=== PATIENT | female | born 1960 | race Caucasian/White ===

== ENCOUNTER 2019-02-14 12:09 | Observation (INO) | payer BC ==
[2019-02-14 15:03] LABS: ABS Basophils 0.1 10^3/ul (0-0.2); ABS Eosinophils 0.3 10^3/ul (0-0.6); ABS Lymphocytes 1.6 10^3/ul (1.0-4.8); ABS Monocytes 0.5 10^3/ul (0-0.8); ABS Neutrophils 3.8 10^3/ul (1.5-7.7); ABS Nucleated RBC 0 10^3/ul; Eosinophil % 4.2 %; Hematocrit 38 % (33-41); Hemoglobin 13.2 g/dL (12.0-16.0); Lymphocyte % 25.4 %; Mean Corpuscular HGB Conc 34 g/dL (31-36); Mean Corpuscular Hemoglobin 31 pg (27-31); Mean Corpuscular Volume 90 fL (80-97); Mean Platelet Volume 7.3 fL (7.4-10.4); Nucleated Red Blood Cells % 0; Platelet Count 300 10^3/uL (150-450); Red Blood Count 4.26 10^6 /uL (3.70-4.87); Red Cell Distribution Width 15 % (10.5-15); White Blood Count 6.2 10^3/uL (3.5-10.8)
--- NOTE | 2019-02-14 15:06 | ED ---
HPI Chest Pain - HPI Summary HPI Summary: This pt is a 58 y/o female presenting to [facility] referred by Dr. Coleman c/o intermittent chest pain for the past 1 month, intensifying in the past couple of weeks. Pt states episodes are happening more frequently, several times a day. Pt states symptoms lasting a little longer than previous. Pt reports she had a right hip injury in November 2018. Pt has been out of work and and had followed up appointment with her PCP, Dr. Coleman, yesterday. 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 She states she had an EKG done yesterday that was abnormal and was advised to come to the ED. Pt was started on Propranolol for high blood pressure yesterday as well, and states it has been helping her blood pressure normalize. She notes she has been anxious since her hip injury and it has been worse in the last couple of weeks due to her chest pain. She describes her chest pain as dull ache underneath her ribs on the left anterior that is nonradiating. Her chest pain is aggravated with anxiety. Denies associated symptoms of SOB, nausea, vomiting, back pain, diaphoresis, edema in LE, calf pain. Her last episode of chest pain was this am. Pt takes ibuprofen 400-600 mg for her hip pain. She states she has an upcoming appt next week by states she is not ready to go back to work because she can barely walk. She also takes Gabapentin, which also helps her hip pain. She does not take any aspirin. Pt is not a smoker. Denies hx of DM or high cholesterol. Both parents with FHx of HTN. Patient medication reviewed this visit. - History of Current Complaint Chief Complaint: EDChestPainROMI Time Seen by Provider: 02/14/19 14:51 Hx Obtained From: Patient Onset/Duration: Started Weeks Ago, Still Present Timing: Intermittent, Lasting Weeks Current Severity: None Pain Intensity: 0 Pain Scale Used: 0-10 Numeric Chest Pain Location: Left Anterior Chest Pain Radiates: No Character: Dull/Aching Aggravating Factor(s): Other: - anxiety Alleviating Factor(s): Nothing Associated Signs and Symptoms: Positive: Chest Pain, Anxiety. Negative: Shortness of Breath, Diaphoresis, Nausea, Back Pain, Calf Pain/Swelling, Vomiting, Edema - Risk Factors Pulmonary Embolism Risk Factors: Negative - Allergy/Home Medications Allergies/Adverse Reactions: Allergies Allergy/AdvReac Type Severity Reaction Status Date / Time epinephrine Allergy Palpitation Verified 02/14/19 12:38 s Home Medications: Home Medications Propranolol TAB* [Inderal TAB*] 20 mg PO BID 02/14/19 [History Confirmed ] PMH/Surg Hx/FS Hx/Imm Hx Previously Healthy: Yes Endocrine/Hematology History: Denies: Hx Diabetes, Hx Thyroid Disease Cardiovascular History: Denies: Hx Hypertension, Hx Pacemaker/ICD Respiratory History: Denies: Hx Asthma, Hx Chronic Obstructive Pulmonary Disease (COPD) GI History: Denies: Hx Ulcer History: Denies: Hx Renal Disease Musculoskeletal History: Reports: Hx Arthritis - OSTEO- KNEES AND HIPS, FEET, Hx Rheumatoid Arthritis Sensory History: Reports: Hx Contacts or Glasses - WILL WEAR GLASSES DAY OF Denies: Hx Hearing Aid Opthamlomology History: Reports: Hx Contacts or Glasses - WILL WEAR GLASSES DAY OF Psychiatric History: Denies: Hx Panic Disorder - Cancer History Cancer Type, Location and Year: Melanoma in situ 1994 - Surgical History Surgery Procedure, Year, and Place: PAROTID TUMOR REMOVED-1997[facility] SINUS SURGERY-1988-. Lt HAND - Ganglion cyst removed january 2014 Hx Anesthesia Reactions: No Infectious Disease History: No Infectious Disease History: Denies: Hx Clostridium Difficile, Hx Hepatitis, Hx Human Immunodeficiency Virus (HIV), Hx of Known/Suspected MRSA, Hx Shingles, Hx Tuberculosis, Traveled Outside the in Last 30 Days - Family History Known Family History: Positive: Cardiac Disease - Mother, Hypertension - both parents Family History: Mother with Parkinson's. Father with myositis. - Social History Occupation: Employed Full-time - current out WC injury Alcohol Use: Occasionally Alcohol Amount: 1-2 DRINKS PER WEEK Substance Use Type: Reports: None Smoking Status (MU): Never Smoked Tobacco Review of Systems Negative: Fever, Skin Diaphoresis Positive: Chest Pain Negative: Shortness Of Breath Negative: Vomiting, Nausea Musculoskeletal: Other - POS: right hip pain Negative: Edema, Other - NEG: back pain, calf pain Positive: Anxious All Other Systems Reviewed And Are Negative: Yes Physical Exam - Summary Physical Exam Summary: Vital Signs Reviewed: Yes A+Ox3, no distress Eyes: Conjunctiva Clear, ROSELYN. EOM intact and full ENT: Hearing grossly normal TM x 2 clear, mmoist, uvula midline, no exudate, no erythema Neck: Positive: Supple Respiratory: Positive: No respiratory distress, No accessory muscle use + CTA throughout no w/r Cardiovascular: RRR nl s1, s2 no m/r CBT <2 sec no bruits mild TTP left anterior chest wall with direct palpation and ROM upper extremities. abd soft + BS nt/nd no guarding, no distension Musculoskeletal Exam: CAREY x 4 without difficulty Strength Intact, ROM Intact Neurological: Positive: Alert, + sensation throughout Psychological: Positive: Normal Response To Family Skin: Positive: no rash, no ecchymosis Triage Information Reviewed: Yes Vital Signs On Initial Exam: Initial Vitals Temp Pulse Resp BP Pulse Ox 99.7 F 76 16 127/87 96 02/14/19 12:32 02/14/19 12:32 02/14/19 12:32 02/14/19 12:32 02/14/19 12:32 Diagnostics - Vital Signs Vital Signs Temp Pulse Resp BP Pulse Ox 02/14/19 14:45 99.1 F 74 18 130/79 97 02/14/19 12:32 99.7 F 76 16 127/87 96 - Laboratory Result Diagrams: 02/14/19 14:56 02/14/19 14:56 Lab Statement: Any lab studies that have been ordered have been reviewed, and results considered in the medical decision making process. - Radiology Chest XR Radiology Interpretation Completed By: Radiologist Summary of Radiographic Findings: IMPRESSION: No active cardiopulmonary disease is noted. Dr. Do has reviewed this report. Re-Evaluation - Re-Evaluation First Eval Re-Evaluation Time: 16:07 Comment: Reviewed negative CXR results with pt. Trop neg. Still concerned regarding EKG in the setting of escalating episodes of chest pain. Ater discussion, pt in agreement to stay for observation Pt was written for aspirin. Chest Pain Course/Dx - Course Course Of Treatment: Patient presents to urgent care at the prompting of her PCP. Patient with history of intermittent chest pain for approximately one month. Last episode of chest pain was this morning. Patient states it's brief lasting usually less than 5 minutes. Patient states she's got a history of anxiety this can worsen she's been out of the Workmen's Comp. right leg injury. Patient states when her anxiety increases sodas or chest pain. Patient states she's not nauseous or short of breath with it. Patient does not take anything specifically for the pain. Patient does not have a history of hypertension, tobacco use, cholesterol. Patient had an EKG done at her PCPs office yesterday that showed deep inversion of her T waves laterally. Patient encouraged to come to ED for further evaluation. Patient does not take aspirin. Vital signs are stable. Patient's exam is non-concerning. Patient does have mild reproducible left anterior chest pain along the T6-T7 rib spaces. Patient states this is similar to the pain. This pain is mildly increased with range of motion against resistance of shortness. Review of EKG from the office as well as today is unchanged however does show deep inverted T waves as well as slightly biphasic T-wave in V3. Patient does not have specifically was factors but has been having intermittent escalating frequency of chest pain. We'll check a troponin. Will check chest x-ray. Patient very anxious states she does not want to stay in the hospital. - Diagnoses Provider Diagnoses: Chest pain, Abnormal EKG - Provider Notifications Discussed Care Of Patient With: Qi Venegas - hospitalist Time Discussed With Above Provider: 16:20 Instructed by Provider To: Admit As Inpatient Discharge - Sign-Out/Discharge Documenting (check all that apply): Patient Departure - Admit to [facility] Patient Received Moderate/Deep Sedation with Procedure: No - Discharge Plan Condition: Stable Disposition: ADMITTED TO [facility] - Billing Disposition and Condition Condition: STABLE Disposition: Admitted to [facility] - Attestation Statements Document Initiated by Johnnieibe: Yes Documenting Scribe: Laury Barrera Provider For Whom Scribe is Documenting (Include Credential): Kailyn Do MD Scribe Attestation: Laury Villatoro, scribed for Kailyn Do MD on 02/17/19 at 0725. Scribe Documentation Reviewed: Yes Provider Attestation: The documentation as recorded by the Laury forrester accurately reflects the service I personally performed and the decisions made by me, Kailyn Do MD Status of Scribe Document: Viewed
[2019-02-14 15:20] LABS: Albumin 4.6 g/dL (3.2-5.2); Albumin/Globulin Ratio 2.2 (1-3); BUN/Creatinine Ratio 17.6 (8-20); Calcium 9.1 mg/dL (8.6-10.3); EGFR African American 76.6 (>60); EGFR Non-African American 63.3 (>60); Globulin 2.1 g/dL (2-4); Potassium 4.4 mmol/L (3.5-5.0); Total Bilirubin 0.4 mg/dL (0.2-1.0); Total Protein 6.7 g/dL (6.4-8.9)
[2019-02-14] MEDS ORDERED: Aspirin 81 mg CHEW TAB* 81 MG TAB.CHEW PO ONE (16:15)
[2019-02-14] MEDS ORDERED: Al Hydrox/Mg Hydrox/Simet LIQ* 30 ML UDC PO PRN (18:35)
[2019-02-14] MEDS ORDERED: Acetaminophen TAB* 325 MG PO PRN (18:35)
[2019-02-14 19:10] LABS: TSH (Thyroid Stimulating Horm) 1.08 mcIU/mL (0.34-5.60)
--- NOTE | 2019-02-14 20:31 | HP ---
CC: Dr. Susan Toussaint * HISTORY AND PHYSICAL: DATE OF ADMISSION: 02/14/19 PROVIDER: Joie Robles NP PRIMARY CARE PROVIDER: Susan Toussaint MD ATTENDING PHYSICIAN WHILE IN THE HOSPITAL: Qi Venegas MD * (dictated by Joie Robles NP) CHIEF COMPLAINT: Chest pain. HISTORY OF PRESENT ILLNESS: Ms. Nye is a 58-year-old female with a past medical history significant for avascular necrosis of the right hip, recently diagnosed anxiety, and history of melanoma who presented to the emergency room with complaints of left-sided chest pain. The patient reports she went to her primary care provider's office yesterday, she had an EKG and today was instructed to come to the emergency room for further evaluation as she did have EKG changes noted on yesterday's EKG as well as her continued symptoms of left- sided chest pain. The patient reports that she initially fell in November when she slipped on the ice landing on her right hip. Since then she has had right hip pain and had increasing anxiety about the right hip. She reports that she is supposed to follow up with Orthopedic next week and her hip pain is not improving. She recently had an MRI and was diagnosed with avascular necrosis of the right hip. She states that her anxiety has been out of control since the diagnosis of avascular necrosis of the hip and the possibility of returning to work with continued significant pain in the right hip. The patient states approximately 1 month ago, she started developing chest pain on and off. She reports it is left sided. She reports that chest pain becomes worse with anxiety and palpation to the left chest also makes the pain worse. She states the pain is sharp and radiates inwards and feels like musculoskeletal pain. She denies any diaphoresis or increased chest pain with exertional activities. She denies any shortness of breath associated with the chest pain. She denies chest pain waking her at night, but due to these continued symptoms of left- sided chest pain and EKG changes, she was instructed to report to the emergency room for further evaluation. In the emergency room, she had routine lab work drawn, which was within normal limits. Troponin was 0.00. She did have an EKG that showed inverted T waves in V4, 5, and 6. She had a chest x-ray that showed no acute disease. The patient denies any fevers, chills. Denies any unintended weight loss. She complains of chest pain that is worse with palpation and increases with increased levels of anxiety. Denies any cough, hemoptysis, or shortness of breath. Denies any nausea, vomiting, diarrhea, abdominal pain, hematuria, or dysuria. Denies any focal weakness, sensory loss , visual complaints, dysphagia. She does complain of right hip pain. She has a healing reddish rash noted to her right forearm. She also reports her anxiety has been out of control. The patient is tearful and crying during interview. Due to her symptoms of chest pain, we were asked to see and evaluate her for admission. PAST MEDICAL HISTORY: 1. Anxiety. 2. History of melanoma. 3. Right hip avascular necrosis. PAST SURGICAL HISTORY: 1. Parotid gland removed. 2. Sinus surgery. 3. Ganglion cyst removal in 2013. HOME MEDICATIONS: 1. CBD oil daily. 2. Ibuprofen 400 to 600 mg b.i.d. to t.i.d. 3. Gabapentin 300 mg 5 times daily. 4. Propranolol 20 mg p.o. b.i.d., which she restarted yesterday. 5. Melatonin 3 mg p.o. at night. ALLERGIES: Allergy to EPINEPHRINE. FAMILY HISTORY: Mother and father both with hypertension. No reported history of diabetes. Father with a history of lung cancer. Mother with a history of Parkinson's disease and in her 80s. SOCIAL HISTORY: Denies any tobacco, alcohol, illicit drug use. She works as a nurse. She is , but currently has domestic partner whom she has been with for 18 years. Code status, she is a full code. Surrogate decision maker in the event she is unable to make her own decisions is her partner, Adriano Suero. REVIEW OF SYSTEMS: A review of 14 systems was completed. All those pertinent positives are mentioned in the HPI. All others are negative. PHYSICAL EXAMINATION GENERAL: At this time, Ms. Nye is a 58-year-old female, she appears anxious and tearful, sitting on the stretcher in the emergency room. She does not appear to be in any acute distress. VITAL SIGNS: Blood pressure 130/79, temperature was 99.1, heart rate was 74, respirations 18, O2 sat 97% on room air. HEENT: Head is atraumatic, normocephalic. Eyes: EOMs are intact. Sclerae anicteric and not pale. Oral mucosa appeared to be moist. NECK: Supple. LUNGS: Clear to auscultation bilaterally. No wheezes, rales, or rhonchi. CARDIAC: S1, S2. Regular rate and rhythm. No murmurs, rubs, or gallops. ABDOMEN: Soft and nontender. Bowel sounds are present x4. EXTREMITIES: She is able to move all 4 extremities. Radial pulses +2. NEUROLOGIC: She is awake, alert, oriented x3. She does appear anxious sitting on the stretcher in the emergency room and tearful. Handgrips are equal. Tongue is midline. Speech is clear. There are no gross focal deficits. SKIN: Intact. DIAGNOSTIC STUDIES/LAB DATA: WBCs were 6.2, RBCs 4.26, hemoglobin 13.2, hematocrit was 38, platelet count is 300. Sodium 141, potassium 4.4, chloride was 105, carbon dioxide is 30, anion gap of 6, BUN was 16, creatinine 0.91, glucose was 89. Calcium was 9.1. Magnesium 2.0. ASTs were 22, ALTs were 15, alkaline phosphatase was 50. TSH is currently pending. Troponin was 0.00. Chest x-ray showed no acute cardiopulmonary disease. EKG is sinus rhythm at a rate of 75. She does have T wave inversions in V4, 5, and 6. ASSESSMENT AND PLAN: Ms. Nye is a 58-year-old female who presented to the emergency room today with complaints of chest pain, worse with increased anxiety and palpation. Due to the chest pain and EKG changes, she will be admitted under observation for: 1. Chest pain. She will be admitted to rule out acute coronary syndrome. She does have EKG changes in V4, 5, and 6 with T wave inversions. We will continue to trend her troponins. I will get a repeat troponin in 3 hours. She will have a repeat EKG in the a.m. and chemical nuclear stress test as she does have avascular necrosis of the right hip and ambulates with crutches at this time. She was given aspirin in the emergency room. I will continue her on a baby aspirin 81 mg p.o. daily. I will get a lipid profile in the morning. We will check a TSH. 2. Anxiety. Continue with symptomatic and supportive care. 3. Avascular necrosis of the right hip. We will continue her gabapentin as previously prescribed and ibuprofen as needed for pain. 4. Hypertension. She was initially started on propranolol yesterday for hypertension. We will continue propranolol 20 mg p.o. b.i.d. We will hold this prior to her nuclear stress test in the a.m. 5. Diet. She can have a regular diet. 6. Code status. She is a full code. 7. DVT prophylaxis. I will encourage ambulation. She does score #1 on the risk assessment, giving her a low risk. TIME SPENT: Time spent on this admission was 60 minutes, greater than half the time was spent [id number] with the patient obtaining my history and physical, the other half of the time was spent going over my plan of care and implementing my plan of care. I have discussed this with my attending, Dr. Qi Venegas; she is in agreement with my plan. JOIE ROBLES, ENRIQUE [id number]/CPS #: [id number] MANASA
[2019-02-14] MEDS: Gabapentin CAP(*) 300 MG PO SCH (21:10)
[2019-02-14] MEDS: Propranolol TAB* 20 MG PO SCH (21:10)
[2019-02-14] MEDS: Ibuprofen TAB* 400 MG PO PRN (23:55)
[2019-02-15] MEDS ORDERED: Melatonin 3 MG TAB PO PRN (00:02)
[2019-02-15] MEDS: Ibuprofen TAB* 400 MG PO PRN ×2 (07:32→11:27)
[2019-02-15] MEDS: Gabapentin CAP(*) 300 MG PO SCH ×2 (07:34→12:46)
[2019-02-15] MEDS ORDERED: Aminophylline IV* 25 MG/ML 10 ML VIAL ONE (08:09)
[2019-02-15] MEDS ORDERED: Regadenoson* 0.4 MG/5 ML SYRINGE ONE (08:09)
[2019-02-15] MEDS ORDERED: Aspirin 81 mg CHEW TAB* 81 MG TAB.CHEW PO SCH (09:00)
[2019-02-15] MEDS: Propranolol TAB* 20 MG PO SCH (11:27)
--- NOTE | 2019-02-15 15:04 | ECHO ---
Patient: BASSAM ROWE [facility] Rec#: [id number] : 1960 Date: 02/15/2019 Age: 58y Height: 173 cm / 68.1 in Weight: 65 kg / 143.3 lbs Sex: F BSA: 1.78 Room#: [facility] Admit Date#: 02/15/2019 Type: Inpatient Referring: Chelita Sumner DO Reading: Silverio Red MD [employer] Field: Lynn Thacker RDCS,RDMS CC: Susan Toussaint MD Transthoracic Echocardiogram Indication: ABN EKG, CP BP: 126/74 HR: 64 Rhythm: NSR Findings History: Melanoma, avascular necrosis of right hip. Technical Comments: The study quality is good. Left Ventricle: The left ventricular chamber size is normal. Mild concentric left ventricular hypertrophy is observed. Global left ventricular wall motion and contractility are within normal limits. There is normal left ventricular systolic function. The estimated ejection fraction is 60-65%. There is an E to A reversal in the mitral valve flow pattern suggestive of diastolic dysfunction. Left Atrium: The left atrium is mildly dilated. Right Ventricle: The right ventricular chamber size and systolic function are within normal limits. Right Atrium: The right atrium is mildly dilated. A prominent chiari network is noted in the right atrium. There is evidence of an atrial septal aneurysm. without obvious shunting on color flow interrogation. Aortic Valve: The aortic valve is trileaflet. Systolic excursion of the aortic valve is normal. There is no evidence of aortic regurgitation. There is no evidence of aortic stenosis. Mitral Valve: The mitral valve leaflets appear normal. There is a trace of mitral regurgitation. Tricuspid Valve: The tricuspid valve leaflets are normal. There is a physiologic tricuspid regurgitation. Unable to estimate the right ventricular systolic pressure. Pulmonic Valve: There is no evidence of pulmonic valve thickening. There is a trace pulmonic regurgitation. There is no pulmonic stenosis. Pericardium: There is no significant pericardial effusion. Aorta: The aortic root appears normal. There is no dilatation of the aortic arch. Pulmonary Artery: The main pulmonary artery is not well visualized. Venous: The inferior vena cava appears normal in size. There is a greater than 50% respiratory change in the inferior vena cava dimension. Conclusions There is normal left ventricular systolic function. The estimated ejection fraction is 60-65%. Global left ventricular wall motion and contractility are within normal limits. The left ventricular chamber size is normal. Mild concentric left ventricular hypertrophy is observed. There is an E to A reversal in the mitral valve flow pattern suggestive of diastolic dysfunction. The left atrium is mildly dilated. The right atrium is mildly dilated. Functionally benign heart valves. There is no prior echocardiogram available to compare with at this time. Measurements Name Value Normal Range RVIDd (AP) 2D 2.9 cm (0.9 - 2.6) RVDdMajor (2D) 2.2 cm (2.2 - 4.4) RAd ISD 4CH 5.4 cm (3.4 - 4.9) RA (A4C)W 3.8 cm (2.9 - 4.6) IVSd (2D) 1.2 cm (0.6 - 1) LVPWd (2D) 1.3 cm (0.6 - 1) LVIDd (2D) 5.3 cm (3.6 - 5.4) LVIDs (2D) 3.4 cm - LV FS (2D) 36 % (25 - 45) Aortic Annulus 2 cm (1.4 - 2.6) Ao root diameter (2D) 3.2 cm (2.1 - 3.5) Ascending Ao 2.9 cm (2.1 - 3.4) Aortic arch 2.5 cm (1.8 - 3.4) LA dimension (AP) 2D 3.6 cm (2.3 - 3.8) LAd ISD 4CH 6 cm (2.9 - 5.3) LA ISD 4CH W 4 cm (2.5 - 4.5) Name Value Normal Range LA ESV BP (A/L) index 28 ml/m2 - Name Value Normal Range MV E-wave Vmax 0.6 m/sec - MV deceleration time 177 msec - MV A-wave Vmax 0.8 m/sec - MV E:A ratio 0.8 ratio - LV septal e' Vmax 0.06 m/sec - LV lateral e' Vmax 0.09 m/sec - LV E:e' septal ratio 10 ratio - LV E:e' lateral ratio 7 ratio - Name Value Normal Range AV Vmax 1.3 m/sec - AV VTI 27 cm - AV peak gradient 7 mmHg - AV mean gradient 4 mmHg - LVOT Vmax 1 m/sec - LVOT VTI 20 cm - LVOT peak gradient 4 mmHg - LVOT mean gradient 2 mmHg - TANI Vmax 1 m/sec - Name Value Normal Range RAP 8 mmHg - IVC diameter 1.9 cm - Name Value Normal Range PV Vmax 0.6 m/sec - PV peak gradient 1.4 mmHg -
[2019-02-15 16:12] VITALS: BP 132/71
--- NOTE | 2019-02-15 20:30 | DS ---
CC: Dr. Blaze Burgess; Dr. Susan Toussaint * DISCHARGE SUMMARY: DATE OF ADMISSION: 02/14/19 DATE OF DISCHARGE: 02/15/19 PRIMARY CARE PROVIDER: Dr. Toussaint. PRINCIPAL DIAGNOSIS: Atypical chest pain. SECONDARY DIAGNOSES: 1. Avascular necrosis of the right hip. 2. Anxiety. 3. Hypertension. DISCHARGE MEDICATION: 1. Ibuprofen 400 to 600 mg p.o. q.8 hours p.r.n. pain. 2. Propranolol 20 mg p.o. b.i.d. 3. Gabapentin 300 mg p.o. 5 times daily. 4. Lipitor 20 mg p.o. q.h.s. (new). 5. Aspirin 81 mg p.o. daily (new). HOSPITAL COURSE: Ms. Nye is a 58-year-old female who presented to the emergency room from her primary care provider's office due to the new findings of T- wave inversions in the anterolateral leads. The patient has been reporting off-and- on chest pain for approximately 1 month. She notes that the pain becomes worse with anxiety and with palpation of the chest. She has been using crutches to get around given the avascular necrosis of the right hip. The patient's story was not felt to be very concerning for cardiac ischemia; however, her EKG was noted to be markedly abnormal. The patient was admitted and ruled out for an acute coronary syndrome with serial troponins. Her troponins were 0 x3. Her EKG continued to reveal T-wave inversions in the anterolateral leads. She underwent a chemical nuclear stress test on 02/15/19, which revealed reversible hypoperfusion of the apex and distal anterior wall concerning for ischemia. I did speak with the on- call youth career specialist, who was present during her stress test. It was recommended that the patient undergo transthoracic echocardiogram. It was felt that perhaps the EKG changes and the abnormal stress test results could be secondary to hypertrophic cardiomyopathy. Additionally, it was recommended to start aspirin and Lipitor and have the patient followup with Dr. Burgess of Cardiology. The patient at this point feels comfortable with this plan. I have scheduled an appointment for 02/27/[address] Burgess and she has been placed on a cancellation list in case she has an appointment sooner. The patient understands that she is to return to the emergency room if she has any changes in her chest discomfort whatsoever or if there is any concerning symptoms that she experiences she is to immediately come back to the emergency room. The patient's was present during this conversation and is in agreement with the plan as well. The patient's story of chest pain does not fit with the findings and therefore no further evaluation within the hospital is going to be performed. PHYSICAL EXAMINATION: On the day of discharge, the patient is awake, alert, and oriented; sitting up in bed, in no acute distress. She does become tearful at one point talking about her hip. Her cardiac exam reveals a normal S1, S2 with regular rate and rhythm. Her lungs are clear. Her abdomen is soft, nontender and nondistended. FOLLOWUP CONCERNS: The patient is being discharged home today 02/15/19. ACTIVITY LEVEL: As tolerated. DIET: Regular. CONDITION ON DISCHARGE: Stable. TIME SPENT: Twenty-five minutes was spent discharging this patient. [id number]/CPS #: [id number] MANASA
== END 2019-02-15 17:06 | disposition home or self-care (01) ==
LOC: ED 12:09 → MEDTELE 18:35
PROVIDERS: ADMIT Internal Medicine; ATTEND Hospitalist
DX: R07.89 Other chest pain (principal); M87.851 Other osteonecrosis, right femur; F41.9 Anxiety disorder, unspecified; I10 Essential (primary) hypertension; Z79.82 Long term (current) use of aspirin; Z85.820 Personal history of malignant melanoma of skin; R94.31 Abnormal electrocardiogram [ECG] [EKG]
CPT/HCPCS: 36415; 71046; 78452; 80053; 80061; 82550; 83735; 84443; 84484; 85025; 93005; 93017; 93306; 99284; A9270-GY; A9502; G0378; J0280; J2785

== ENCOUNTER 2020-01-03 10:20 | Inpatient (IN) | payer OTHER ==
--- NOTE | 2020-01-02 13:28 | HP ---
HISTORY AND PHYSICAL: DATE OF SURGERY: 01/03/20 DATE OF OFFICE VISIT: 12/28/19 SURGEON: Emelia Tao MD * (DICTATED BY BELLO ROCHA) PROCEDURE: Right total hip arthroplasty. CHIEF COMPLAINT: Right hip pain. HISTORY OF PRESENT ILLNESS: Ms. 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 She has failed conservative treatment and elected to proceed with a right total hip arthroplasty. PAST MEDICAL HISTORY: Anxiety, hypertension, high cholesterol, melanoma. PAST SURGICAL HISTORY: Sinus surgery and parotid gland tumor removal. CURRENT MEDICATIONS: 1. Ibuprofen as needed. 2. Propranolol 20 mg twice a day. 3. Gabapentin 300 mg 1 tab 5 times a day. 4. Melatonin at night. 5. CBD as needed. 6. Vitamin E. ALLERGIES: EPINEPHRINE. FAMILY HISTORY: Inclusive body myositis, lung cancer, coronary artery disease, Parkinson's disease, and TIA. SOCIAL HISTORY: She is a 59-year-old female. She lives with her partner. She does not smoke or use drugs or alcohol. REVIEW OF SYSTEMS: A complete 14-point review of systems was reviewed with the patient, all negative and noncontributory. She denies history of DVT, PE, hepatitis, HIV, or anesthesia problems. PHYSICAL EXAMINATION GENERAL: She is well developed, well nourished, in no acute distress. VITAL SIGNS: She stands 67.5 inches tall, weighs 125 pounds. Blood pressure was 180/100, heart rate 72. HEENT: Normocephalic and atraumatic. NECK: Supple. No palpable lymph nodes. PULMONARY: The lungs are clear to auscultation bilaterally. CARDIO: Regular rate and rhythm. Strong S1 and S2. ABDOMEN: Soft, nontender, and nondistended. NEUROLOGICAL: She is alert and oriented x3. MUSCULOSKELETAL: Right lower extremity: The skin is intact. There are no open wounds or abrasions. She walks in an antalgic-type gait favoring her right hip. She has decreased internal and external rotation of the right hip. Has a 2+ dorsalis pedis pulse. She is able to dorsiflex and plantar flex, and has intact sensation. ASSESSMENT AND PLAN: Ms. Nye is a 59-year-old female with avascular necrosis of the right hip. She has failed conservative treatment and elected to proceed with a right total hip arthroplasty. The surgery is scheduled for 01/[address] Tao discussed the risks and benefits of the surgery at today's visit and all of her questions were answered. She will follow up with Dr. Tao 2 weeks after the surgery. BELLO ROCHA [id number]/[facility] #: [id number] MANASA
[~2020-01-03 10:20] MED LIST: Acetaminophen TAB* 325 MG PO ONE; Buffered Lidocaine 1% SYRIN* 1 ML/SYRINGE INTRADERM ONE; Lactated Ringers 1000 ML Bag* 1,000 ML IV SCH; Propofol* 500 MG/50 ML BTL ONE; Tranexamic Acid 1,000 MG in NS 0.9% 50 ML* (outpatient use) IV SCH; celeCOXIB CAP* 200 MG PO ONE; fentaNYL* 50 MCG/ML 2 ML VIAL (100 MCG VIAL) ONE
--- OUTSIDE RECORDS SUMMARY | 2020-01-03 10:24 | XMS REPORT | Continuity of Care Document ---
:1960 External Reference #:[id number] Author Name Emelia Tao M.D. (transmitted by agent of provider Vaishali Boyd) Address [address] [place] [address] [place] [address] Care Team Providers Name Role Phone Susan Toussaint MD - Internal Care Team Information Acquisition Marketing Manager [phone] Medicine Problems Active Problems Provider Date Localized, primary osteoarthritis of the pelvic Emelia Tao M.D. Onset: region and thigh Trochanteric bursitis Emelia Tao M.D. Onset: 03/23/2019 Idiopathic aseptic necrosis of right femur Emelia Tao M.D. Onset: 2018 Social History Type Date Description Comments Sex Unknown Smokeless Tobacco Never Used Smokeless Tobacco ETOH Use Denies alcohol use Tobacco Use Start: Unknown Patient has never smoked Recreational Drug Use Denies Drug Use Smoking Status Reviewed: 11/14/19 Patient has never smoked Exercise Type/Frequency Exercises rarely Allergies, Adverse Reactions, Alerts Active Allergies Reaction Severity Comments Date Epinephrine 03/17/2018 Inactive Allergies NKDA 01/10/2014 Medications Active Medications SIG Qnty Indications Ordering Provider Date Ibuprofen 2-3 tabs q8h prn Unknown 200mg Tablets Propranolol HCL 1 by mouth twice Unknown 20mg a day Tablets Gabapentin 1 tab PO 5 times Unknown 300mg Capsules a day Aspir-Low 1 by mouth every Unknown 81mg Tablets DR day Atorvastatin Calcium 1 by mouth every Unknown 20mg day (not started Tablets yet) Mahesh-E 1 tab once per Unknown 400mg Tablets day Melatonin 1 by mouth @ at Unknown 3mg Capsules bedtime prn CBD Oil prn Unknown Medications Administered in Office Medication SIG Qnty Indications Ordering Provider Date Depomedrol 40MG Emelia Tao M.D. 08/08/2019 Injection Depomedrol 40MG Emelia Tao M.D. 04/20/2019 Injection Depomedrol 40MG Emelia Tao M.D. 03/23/2019 Injection Immunizations Description No Information Available Vital Signs Date Vital Result Comment 11/14/2019 11:41am Height 67.5 inches 5'7.50" Weight 125.00 lb Heart Rate 72 /min BP Systolic Sitting 180 mmHg BP Diastolic Sitting 100 mmHg Respiratory Rate 14 /min Pain Level 6 BMI (Body Mass Index) 19.3 kg/m2 08/08/2019 12:03pm Height 67.5 inches 5'7.50" Heart Rate 88 /min BP Systolic 132 mmHg BP Diastolic 84 mmHg Respiratory Rate 16 /min Body Temperature 98.3 F Pain Level 6 Results Test Acquired Date Facility Test Result H/L Range Note CBC Auto 11/14/2019 [facility] White Blood 5.9 10^3/uL Normal 3.5-10.[address] [place] [address] [phone] Red Blood Count 3.77 10^6/uL Normal 3.70-4.87 Hemoglobin 11.4 g/dL Low 12.0-16.0 Hematocrit 34 % Low 35-47 Mean Corpuscular Volume 91 fL Normal 80-97 Mean Corpuscular Hemoglobin 30 pg Normal 27-31 Mean Corpuscular HGB Conc 33 g/dL Normal 31-36 Red Cell Distribution Width 14 % Normal 10-15 Platelet Count 279 10^3/uL Normal 150-450 Mean Platelet Volume 7.7 fL Normal 7.4-10.4 Abs Neutrophils 4.0 10^3/uL Normal 1.5-7.7 Abs Lymphocytes 1.2 10^3/uL Normal 1.0-4.8 Abs Monocytes 0.5 10^3/uL Normal 0-0.8 Abs Eosinophils 0.1 10^3/uL Normal 0-0.6 Abs Basophils 0.1 10^3/uL Normal 0-0.2 Abs Nucleated RBC 0.0 10^3/uL Granulocyte % 67.7 % Lymphocyte % 20.7 % Monocyte % 8.4 % Eosinophil % 2.0 % Basophil % 1.2 % Nucleated Red Blood Cells % 0.0 Urinalysis Profile 11/14/2019 [facility] Urine Color Yellow [address] [place] [address] [phone] Urine Appearance Cloudy Urine Specific [place] 1.010 Normal 1.010-1.030 Urine pH 5.0 Normal 5-9 Urine Urobilinogen Negative Negative Urine Ketones Negative Negative Urine Protein Negative Negative Urine Leukocytes Negative Negative Urine Blood Negative Negative Urine Nitrite Negative Negative Urine Bilirubin Negative Negative Urine Glucose Negative Negative Comp Metabolic 11/14/2019 [facility] Sodium 142 mmol/L Normal 135-[address] [place] [address] [phone] Potassium 4.4 mmol/L Normal 3.5-5.0 Chloride 107 mmol/L Normal 101-111 Co2 Carbon Dioxide 31 mmol/L Normal 22-32 Anion Gap 4 mmol/L Normal 2-11 Glucose 86 mg/dL Normal 70-100 Blood Urea Nitrogen 12 mg/dL Normal 6-24 Creatinine 0.75 mg/dL Normal 0.51-0.95 BUN/Creatinine Ratio 16.0 Normal 8-20 Calcium 8.8 mg/dL Normal 8.6-10.3 Total Protein 6.0 g/dL Low 6.4-8.9 Albumin 4.0 g/dL Normal 3.2-5.2 Globulin 2.0 g/dL Normal 2-4 Albumin/Globulin Ratio 2.0 Normal 1-3 Total Bilirubin 0.40 mg/dL Normal 0.2-1.0 Alkaline Phosphatase 44 U/L Normal 34-104 Alt 16 U/L Normal 7-52 Ast 20 U/L Normal 13-39 Egfr Non- 78.8 >60 Egfr 95.4 >60 1 Inr/Protime 11/14/2019 [facility] Inr 0.98 Normal 0.82-1.[address] [place] [address] [phone] Laboratory test 11/14/2019 [facility] Partial 39.9 High 26.0- 38.[address] [place] [address] Time PTT [phone] Urine Culture And 11/14/2019 [facility] Urine SEE RESULT [address] [place] [place] [address] [phone] Xray 08/08/2019 [facility] Inj/Aspir <pending> Major JT Or Shelliea W/ US 1 Because ethnic data is not always readily available, this report includes an eGFR for both -Americans and non- Americans. The National Kidney Disease Education Program (NKDEP) does not endorse the use of the MDRD equation for patients that are not between the ages of 18 and 70, are , have extremes of body size, muscle mass, or nutritional status, or are non- or non-. According to the National Kidney Foundation, irrespective of diagnosis, the stage of the disease is based on the level of kidney function: Stage Description GFR(mL/min/1.73 m(2)) 1 Kidney damage with normal or decreased GFR 90 2 Kidney damage with mild decrease in GFR 60-89 3 Moderate decrease in GFR 30-59 4 Severe decrease in GFR 15-29 5 Kidney failure <15 (or dialysis) 2 Standard intensity warfarin therapeutic range: 2.0-3.0 High intensity warfarin therapeutic range: 2.5-3.5 3 SEE RESULT BELOW Name: DANIELLE NYE : [address]: Emelia Tao MD Acct: [id number] Unit: [id number] AGE: 59 Location: [facility] Re11/14/19 SEX: F Status: REG REF SPEC: [id number] ERIN: 11/14/19-5143 [facility] DR: Emelia Tao MD REQ: [id number] RECD: 11/14/19 STATUS: COMP _ SOURCE: URINE SPDESC: ORDERED: Urine Culture QUERIES: Urine Source: Clean Catch Procedure Result Reported Site Urine Culture Final 11/15/19- 1450 ML No Growth (<1,000 CFU/mL) * ML - Main Lab . END OF REPORT DEPARTMENT OF PATHOLOGY, [address] [place] [address] Christopher Cartwright M.D. Director [facility] # [id number] Procedures Date Code Description Status 08/08/2019 44541 Inj/Aspir Major JT Or Bursa W/ US Completed Medical Devices Description No Information Available Encounters Type Date Location Provider Dx Diagnosis Office Visit 08/08/2019 [facility] Emelia Tao, 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 M76.01 Gluteal tendinitis, right hip M25.551 Pain in right hip W00.9xxD Unspecified fall due to ice and snow, subsequent encounter M70.61 Trochanteric bursitis, right hip M16.11 Unilateral primary osteoarthritis, right hip 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 Assessments Date Code Description Provider 11/14/2019 M25.551 Pain in right hip Emelia Tao M.D. 11/14/2019 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 Emelia Tao M.D. 08/30/2019 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 Emelia Tao M.D. 08/30/2019 M76.01 Gluteal tendinitis, right hip Emelia Tao M.D. 08/30/2019 M25.551 Pain in right hip Emelia Tao M.D. 08/30/2019 W00.9xxD Unspecified fall due to ice and snow, Emelia Tao M.D. subsequent encounter 08/30/2019 M70.61 Trochanteric bursitis, right hip Emelia Tao M.D. 08/08/2019 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 Emelia Tao M.D. 08/08/2019 M76.01 Gluteal tendinitis, right hip Emelia Tao M.D. 08/08/2019 M25.551 Pain in right hip Emelia Tao M.D. 08/08/2019 W00.9xxD Unspecified fall due to ice and snowEmelia M.D. subsequent encounter 08/08/2019 M70.61 Trochanteric bursitis, right hip Emelia Tao M.D. 08/08/2019 M16.11 Unilateral primary osteoarthritis, right hip Emelia Tao M.D. 08/08/2019 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 Emelia Tao M.D. Plan of Treatment Future Appointment(s):12/12/2019 11:15 am - Emelia Tao M.D. at [facility]11/14/2019 - Emelia Tao M.D.M25.551 Pain in right hipFollow up:Follow up: 2 weeks after uktbrblE50.051 Idiopathic aseptic necrosis of right femur Functional Status Description No Information Available Mental Status Description No Information Available Referrals Description No Information Available
--- OUTSIDE RECORDS SUMMARY | 2020-01-03 10:24 | XMS REPORT | Continuity of Care Document ---
:1960 External Reference #:[id number] Author Name Emelia Tao M.D. (transmitted by agent of provider Merle Mathur) Address [address] [place] [address] [place] [address] Care Team Providers Name Role Phone Susan Toussaint MD - Internal Care Team Information Medical Technologist Chemistry [phone] Medicine Problems Active Problems Provider Date Localized, [...] Use Denies Drug Use Smoking Status Reviewed: 12/28/19 Patient has never smoked Exercise Type/Frequency Exercises [...] Available Vital Signs Date Vital Result Comment 12/28/2019 11:35am Height 67.5 inches 5'7.50" Weight 128.00 lb Heart Rate 70 /min BP Systolic 132 mmHg BP Diastolic 70 mmHg Respiratory Rate 14 /min Body Temperature 98.1 F Pain Level 6 BMI (Body Mass Index) 19.7 kg/m2 12/12/2019 11:43am Height 67.5 inches 5'7.50" Weight 128.00 lb Heart Rate 70 /min BP Systolic 148 mmHg BP Diastolic 94 mmHg Body Temperature 99.2 F Pain Level 7 BMI (Body Mass Index) 19.7 kg/m2 Results Test Acquired Date Facility Test Result H/L Range Note CBC Auto 11/14/2019 [facility] White Blood 5.9 10^3/uL Normal 3.5-10.[address] [place] [address] [phone] Red Blood Count 3.77 10^6/uL Normal 3.70-4.87 [...] Blood Cells % 0.0 Urinalysis Profile 11/14/2019 [facility] Urine Color Yellow [address] [place] [address] [phone] Urine Appearance Cloudy Urine Specific [place] 1.010 Normal 1.010-1.030 Urine pH 5.0 Normal 5-9 Urine Urobilinogen Negative Negative Urine Ketones Negative Negative Urine Protein Negative Negative Urine Leukocytes Negative Negative Urine Blood Negative Negative Urine Nitrite Negative Negative Urine Bilirubin Negative Negative Urine Glucose Negative Negative Comp Metabolic 11/14/2019 [facility] Sodium 142 mmol/L Normal 135-[address] [place] [address] [phone] Potassium 4.4 mmol/L Normal 3.5-5.0 Chloride 107 [...] >60 Egfr 95.4 >60 1 Inr/Protime 11/14/2019 [facility] Inr 0.98 Normal 0.82-1.[address] [place] [address] [phone] Laboratory test 11/14/2019 [facility] Partial 39.9 High 26.0- 38.[address] [place] [address] Time PTT [phone] Urine Culture And 11/14/2019 [facility] Urine SEE RESULT [address] [place] [address] [phone] Xray 08/08/2019 [facility] Inj/Aspir <pending> Major JT Or [...] [address]: Emelia Tao MD Acct: [id number] Unit: [id number] AGE: 59 Location: [facility] Re11/14/19 SEX: F Status: REG REF SPEC: [id number] ERIN: 11/14/191434 [facility] DR: Emelia Tao MD REQ: [id number] RECD: 11/14/19 STATUS: COMP _ SOURCE: URINE SPDESC: ORDERED: Urine Culture QUERIES: Urine Source: Clean Catch Procedure Result Reported Site Urine Culture Final 11/15/19- 1450 ML No Growth (<1,000 CFU/mL) * ML - Main Lab . END OF REPORT DEPARTMENT OF PATHOLOGY, [address] [place] [address] Christopher Cartwright M.D. Director [facility] # [id number] Procedures Date Code Description Status 11/14/2019 40190 EKG, Interpretation Only Completed 08/08/2019 35289 Inj/Aspir Major JT Or Bursa W/ US Completed Medical Devices Description No Information Available Encounters Type Date Location Provider Dx Diagnosis Office Visit 12/12/2019 [facility] Emelia Tao, M25.551 Pain in right hip 11:15a at [facility] 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 M76.01 Gluteal tendinitis, right hip M70.61 Trochanteric bursitis, right hip M16.11 Unilateral primary osteoarthritis, right hip Office Visit 08/08/2019 11:30a [facility] Emelia Tao, 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 [facility] aseptic necrosis of right femur M76.01 Gluteal tendinitis, right hip M25.551 Pain in right hip W00.9xxD Unspecified fall due to ice and snow, subsequent encounter M70.61 Trochanteric bursitis, right hip M16.11 Unilateral primary osteoarthritis, right hip 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 Assessments Date Code Description Provider 12/12/2019 M25.551 Pain in right hip Emelia Tao M.D. 12/12/2019 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 aseptic necrosis of right Emelia Tao M.D. femur 12/12/2019 M76.01 Gluteal tendinitis, right hip Emelia Tao M.D. 12/12/2019 M70.61 Trochanteric bursitis, right hip Emelia Tao M.D. 12/12/2019 M16.11 Unilateral primary osteoarthritis, right Emelia Tao M.D. hip 11/14/2019 Z13.6 Encounter for screening for Blaze Burgess DO [facility] cardiovascular disorders 11/14/2019 M25.551 Pain in right hip Emelia Tao M.D. 11/14/2019 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 aseptic necrosis of right Emelia Tao M.D. femur 08/30/2019 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 aseptic necrosis of right Emelia Tao M.D. femur 08/30/2019 M76.01 Gluteal tendinitis, right hip Emelia Tao M.D. 08/30/2019 M25.551 Pain in right hip Emelia Tao M.D. 08/30/2019 W00.9xxD Unspecified fall due to ice and snow, Emelia Tao M.D. subsequent encounter 08/30/2019 M70.61 Trochanteric bursitis, right hip Emelia Tao M.D. 08/08/2019 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 aseptic necrosis of right Emelia Tao M.D. femur 08/08/2019 M76.01 Gluteal tendinitis, right hip Emelia Tao M.D. 08/08/2019 M25.551 Pain in right hip Emelia Tao M.D. 08/08/2019 W00.9xxD Unspecified fall due to ice and snow, Emelia Tao M.D. subsequent encounter 08/08/2019 M70.61 Trochanteric bursitis, right hip Emelia Tao M.D. 08/08/2019 M16.11 Unilateral primary osteoarthritis, right Emelia Tao M.D. hip 08/08/2019 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 aseptic necrosis of right Emelia Tao M.D. femur Plan of Treatment Future Appointment(s):01/14/2020 1:15 pm - BELLO Willingham at [facility] Functional Status Description No Information Available Mental Status Description No Information Available Referrals Description No Information Available
--- OUTSIDE RECORDS SUMMARY | 2020-01-03 10:24 | XMS REPORT | Continuity of Care Document ---
:1960 External Reference #:[id number] Author Name Emelia Tao M.D. (transmitted by agent of provider Swetha Randle) Address [address] [facility] [place] [address] Care Team Providers Name Role Phone Susan Toussaint MD - Internal Care Team Information Sales And Catering Coordinator [phone] Medicine Problems Active Problems Provider Date Localized, [...] Use Denies Drug Use Smoking Status Reviewed: 12/12/19 Patient has never smoked Exercise Type/Frequency Exercises [...] Available Vital Signs Date Vital Result Comment 12/12/2019 11:43am Height 67.5 inches 5'7.50" Weight 128.00 lb Heart Rate 70 /min BP Systolic 148 mmHg BP Diastolic 94 mmHg Body Temperature 99.2 F Pain Level 7 BMI (Body Mass Index) 19.7 kg/m2 11/14/2019 11:41am Height 67.5 inches 5'7.50" Weight 125.00 lb Heart Rate 72 /min BP Systolic Sitting 180 mmHg BP Diastolic Sitting 100 mmHg Respiratory Rate 14 /min Pain Level 6 BMI (Body Mass Index) 19.3 kg/m2 Results Test Acquired Date Facility Test Result H/L Range Note CBC Auto 11/14/2019 [facility] White Blood 5.9 10^3/uL Normal 3.5-10.[address] [place] [address] [phone] Red Blood Count 3.77 10^6/uL Normal 3.70-4.87 [...] Blood Cells % 0.0 Urinalysis Profile 11/14/2019 [facility] Urine Color Yellow [address] [place], [place] [address] [phone] Urine Appearance Cloudy Urine Specific [place] 1.010 Normal 1.010-1.030 Urine pH 5.0 Normal 5-9 Urine Urobilinogen Negative Negative Urine Ketones Negative Negative Urine Protein Negative Negative Urine Leukocytes Negative Negative Urine Blood Negative Negative Urine Nitrite Negative Negative Urine Bilirubin Negative Negative Urine Glucose Negative Negative Comp Metabolic 11/14/2019 [facility] Sodium 142 mmol/L Normal 135-[address] [place] [address] [phone] Potassium 4.4 mmol/L Normal 3.5-5.0 Chloride 107 [...] >60 Egfr 95.4 >60 1 Inr/Protime 11/14/2019 [facility] Inr 0.98 Normal 0.82-1.[address] [place] [address] [phone] Laboratory test 11/14/2019 [facility] Partial 39.9 High 26.0- 38.[address] [place] [address] Time PTT [phone] Urine Culture And 11/14/2019 [facility] Urine SEE RESULT [address] [place] [address] [phone] Xray 08/08/2019 [facility] Inj/Aspir <pending> Major JT Or Bursa W/ US 1 Because ethnic data is [...] [address]: Emelia Tao MD Acct: [id number] Unit: [id number] AGE: 59 Location: [facility] Re11/14/19 SEX: F Status: REG REF SPEC: [id number] ERIN: 11/14/19-[address] [facility] [address]: Emelia Tao MD REQ: [id number] RECD: 11/14/19 STATUS: COMP _ SOURCE: URINE SPDESC: ORDERED: Urine Culture QUERIES: Urine Source: Clean Catch Procedure Result Reported Site Urine Culture Final 11/15/19- 1450 ML No Growth (<1,000 CFU/mL) * ML - Main Lab . END OF REPORT DEPARTMENT OF PATHOLOGY, [address] [place] [address] Christopher Cartwright M.D. Director [facility] # [id number] Procedures Date Code Description Status 11/14/2019 22818 EKG, Interpretation Only Completed 08/08/2019 42843 Inj/Aspir Major JT Or Bursa W/ US Completed Medical Devices Description No Information Available Encounters Type Date Location Provider Dx Diagnosis Office Visit 12/12/2019 [facility] Emelia Tao, M25.551 Pain in right hip 11:15a at [facility] 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 M76.01 Gluteal tendinitis, right hip M70.61 Trochanteric bursitis, right hip M16.11 Unilateral primary osteoarthritis, right hip Office Visit 08/08/2019 11:30a [facility] Emelia Tao, 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 at [facility] aseptic necrosis of right femur M76.01 Gluteal [...] Encounter for screening for Blaze Burgess DO [facility] cardiovascular disorders 11/14/2019 M25.551 Pain in right [...] Tao M.D. femur Plan of Treatment Future Appointment(s):12/28/2019 11:15 am - Emelia Tao M.D. at [facility]12/12/2019 - Emelia Tao M.D.M25.551 Pain in right hipFollow up:Follow up: 2 myqsaJ00.051 Idiopathic aseptic necrosis of right avrcfF36.01 Gluteal tendinitis, right hipM70.61 Trochanteric bursitis, right hipM16.11 Unilateral primary osteoarthritis, right hip Functional Status Description No Information Available Mental Status Description No Information Available Referrals Description No Information Available
[2020-01-03] MEDS ORDERED: ceFAZolin 2 GM PREMIX in ORs 2 GM/50 ML BAG ONE (11:13)
[2020-01-03] MEDS ORDERED: Acetaminophen TAB* 325 MG ONE (11:14)
[2020-01-03] MEDS ORDERED: celeCOXIB CAP* 200 MG ONE (11:14)
[2020-01-03] MEDS ORDERED: fentaNYL* 50 MCG/ML 5 ML VIAL (250 MCG VIAL) ONE (11:33)
[2020-01-03] MEDS ORDERED: Midazolam* 1 MG/ML 2 ML VIAL (2 MG) ONE (11:33)
[2020-01-03] MEDS ORDERED: ROPIVACAINE 5 MG/ML 30 ML BTL (0.5%) ONE (12:31)
[2020-01-03] MEDS ORDERED: fentaNYL* 50 MCG/ML 2 ML VIAL (100 MCG VIAL) ONE (13:03)
[2020-01-03] MEDS ORDERED: EPHEDrine (Pressors)* 50 MG/ML VIAL ONE (13:52)
[2020-01-03] MEDS ORDERED: Propofol* 10 MG/ML 20 ML BTL ONE (14:43)
[2020-01-03] MEDS ORDERED: diPHENhydraMINE IV* 50 MG/ML 1 ml VIAL (BENADRYL) IV PRN ×2 (15:35→15:40)
[2020-01-03] MEDS ORDERED: oxyCODONE/Acetamin 5/325 MG* TAB PO PRN (15:35)
[2020-01-03] MEDS ORDERED: diPHENhydraMINE PO* 25 MG PO PRN (15:35)
[2020-01-03] MEDS ORDERED: Acetaminophen TAB* 325 MG PO PRN (15:35)
[2020-01-03] MEDS ORDERED: Ondansetron INJ* 2 MG/ML VIAL IV PRN ×2 (15:35→15:40)
[2020-01-03] MEDS ORDERED: Magnesium Hydroxide LIQ* 30 ML UDC PO PRN (15:35)
[2020-01-03] MEDS ORDERED: Ondansetron ODT TAB* 4 MG PO PRN (15:35)
[2020-01-03] MEDS ORDERED: Naloxone* 0.4 MG/ML 1 ML VIAL IV PRN (15:40)
[2020-01-03] MEDS ORDERED: HYDROmorphone INJ1* 1 MG/ML SYRINGE IV PRN (15:40)
[2020-01-03] MEDS ORDERED: oxyCODONE TAB* 5 MG TAB PO PRN (15:40)
[2020-01-03] MEDS ORDERED: PROCHLORPERAZINE INJ 5 MG/ML 2 ML VIAL IV PRN (15:40)
[2020-01-03] MEDS ORDERED: Gabapentin CAP(*) 300 MG PO ONE (16:00)
[2020-01-03] MEDS ORDERED: oxyCODONE TAB* 5 MG TAB ONE (16:03)
--- NOTE | 2020-01-03 16:26 | OP ---
Operative Report - Blank - Operative Report Date of Operation: 01/03/20 Note: BASSAM ROWE 1960 Date Of Surgery: 01/03/20 Emelia Tao MD Steel Chipper: Shanae MONSALVE did help throughout the procedure with preparation of the hip, wound retraction, manipulation of the hip, and wound closure. Anesthesiologist: Dr. 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 Hardware used: This is uncemented [place] total hip arthroplasty hardware for the femur a size 4 accolade II with 127 neck angle femoral component, for the acetabulum a size 48D trident II tritanium cluster hole shell, for the insert a size 32 D trident X3 polyethylene insert, and for the femoral head a size 32 + 4 ceramic biolox V40 femoral head. Brief history/Indication: BASSAM ROWE was known in clinic and had a history of severe right hip pain. She failed conservative treatment with anti- inflammatories, pain pills, intra-articular injections and physical therapy. She elected to undergo right total hip arthroplasty due to continued pain and decreased quality of life. Radiographs showed severe end stage avascular necrosis of the hip with bone on bone contact. Informed consent was obtained from the patient. She understood the risks of surgery included but were not limited to: bleeding, infection, damage to nearby structures, intraoperative fracture, nerve palsy, failure of the hardware, early loosening, stiffness or loss of motion, dislocation, leg length discrepancy, anesthesia complications, stroke, heart attack, blood clot and . She wished to proceed. Intra-Operative findings: Intraoperatively the patient was noted to have severe loss of cartilage of the acetabulum and femoral head. Description of the Procedure: BASSAM ROWE was identified in the preanesthesia unit. Her right hip was marked as the correct operative side. Informed consent was signed and placed in the chart. The patient was taken to the operating room and placed under anesthesia without complication. A spencer catheter was placed. The patient was placed on the peg board with all bony prominences well padded. The right lower extremity was prepped and draped in the usual sterile fashion. Preoperative time -out was made to correctly identify the patient, side and site. Appropriate intraoperative antibiotics were given within one hour of incision. A standard posterior incision was made and carried sharply down to the lateral fascia. A new 10 blade was used to make an incision in the fascia in line with the skin incision. A charnley retractor was placed. The piriformis and conjoined tendons were identified and elevated off the posterolateral femur using electrocautery. These were tagged with number 5 Ethibond. Next electrocautery was used to make a posterolateral capsular flap and this was tagged with number 5 Ethibonds. The hip was carefully dislocated. Lesser trochanter to the center of the femoral head was measured at 60 mm. The oscillating saw was used to make the femoral neck cut. The femoral head was carefully removed. The femur was retracted anteriorly and the acetabular retractors were placed. Long-handled knife was used to sharply remove any remaining labrum from the acetabular rim. The acetabulum was sequentially reamed up to a size 48. A bleeding subchondral bone bed was obtained. A trial liner was placed and had excellent fit and stability. A 48D cup was placed and had excellent stability with appropriate anteversion and abduction angle. A size 32D liner was impacted into the acetabular shell. The liner was checked for stability and was stable. Next attention was turned to preparation of the femoral canal. A canal finder was used to enter the proximal femur. The femoral canal was sequentially broached up to a size 4 femoral broach trial. A trial neck and 32 + 4 trial femoral head was chosen. Lesser trochanter to center of the femoral head measurement was satisfactory. The hip was reduced and taken through a range of motion. The hip was stable in all positions with good soft tissue tension and appropriate leg lengths. The hip was dislocated and all trials were removed. The final implant chosen was a accolade II size 4 femoral stem. This stem was impacted into the femoral canal without difficulty. The stem was stable with appropriate anteversion. The femoral head chosen was a 32 + 4 ceramic head. The head was impacted onto the femoral neck without difficulty. The final lesser trochanter to center of the femoral head measurement was satisfactory. The hip was reduced and taken through a range of motion. The hip was stable in all positions with good soft tissue tension and appropriate leg lengths. The hip was copiously irrigated with sterile saline. The previously tagged capsule and tendons were repaired to the posterolateral femur through two trochanteric drill holes. The lateral fascia layer was closed using number 1 vicryls. The rest of the incision was closed in a layered fashion using 0 and 2-0 vicryls. The skin was closed using 3-0 monocryl suture and Dermabond. Sterile adaptic, 4x4s and paper tape was used to cover the incision. The patients anesthesia was reversed without difficulty. She was taken to the PACU in stable condition. Intended weight-bearing will be as tolerated with posterior hip precautions.
[2020-01-03] MEDS: oxyCODONE TAB* 5 MG TAB PO PRN ×2 (16:54→21:16)
[2020-01-03] MEDS: Lactated Ringers 1000 ML Bag* 1,000 ML IV SCH (16:56)
[2020-01-03] MEDS: Morphine INJ* 2 MG/ML 1 ML SYRINGE (TWO MG - NEW SYRINGE VERSION) IV PRN ×2 (18:16→23:07)
--- NOTE | 2020-01-03 18:44 | CONS ---
CC: Dr. Susan Toussaint; Dr. Emelia Tao; Dr. Josie Mendoza * CONSULTATION REPORT: DATE OF CONSULT: 01/03/20 PRIMARY CARE PROVIDER: Dr. Susan Toussaint. REQUESTING PHYSICIAN IN CONSULTATION: Dr. Emelia Tao. ATTENDING PHYSICIAN: Dr. Josie Mendoza (dictated by BELLO Rollins). REASON FOR CONSULT: Co-medical management. HISTORY OF PRESENT ILLNESS: Ms. Nye is a 59-year-old female with a past medical history of hypertension, anxiety, melanoma and right hip avascular necrosis, who presented to [facility] today for an elective right total hip arthroplasty. The patient is seen postoperatively in the PACU. She reports she is feeling relatively well. She does complain of 5/10 pain in the hip and feeling "cloudy," but notes that she can feel her legs and that she is able to move her extremities. She denies anxiety or severe pain. She denies headache, dizziness, lightheadedness, vision changes, chest pain, shortness of breath, cough, fever, chills, abdominal pain, nausea, vomiting, diarrhea, myalgias, or arthralgias aside from right hip pain. PAST MEDICAL HISTORY: 1. Hypertension. 2. Anxiety. 3. Melanoma in situ, follows Dr. Ferguson. PAST SURGICAL HISTORY: Sinus, parotid gland tumor removal. HOME MEDICATIONS: 1. Cannabidiol extract 20 mg p.o. b.i.d. 2. Gabapentin 300 mg p.o. 5 times daily. 3. Ibuprofen 800 mg p.o. t.i.d. p.r.n. 4. Propranolol 20 mg p.o. b.i.d. 5. JEREL-e 800 mg p.o. daily. 6. Turmeric 1 tab p.o. b.i.d. DRUG ALLERGIES: EPINEPHRINE, palpitations. FAMILY HISTORY: Father had lung cancer, myositis. Mom had CAD and Parkinson's disease. SOCIAL HISTORY: The patient denies current or former use of tobacco. She does not drink and reports that she has had no alcohol in the last 1 year. She is on Worker's Comp, stating she injured herself while working. 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 She lives with her long-term partner. She has 1 son and 1 stepdaughter. In the event that she is unable to make her own medical decisions, she has appointed, Martin Suero, to be her surrogate decision maker. REVIEW OF SYSTEMS: A 14-point review of systems has been performed and all the pertinent positives and negatives are in the HPI. All other systems are negative. PHYSICAL EXAM: General: Ms. Nye is a well-developed, well-nourished, average weight, middle-aged white woman, who is sitting up in bed. She appears comfortable and in no acute distress. She is pleasant, cooperative, and appropriate. HEENT: PERRL. EOMI. Hearing is grossly intact. Oral mucous membranes are moist. There are no lesions. The pharynx is clear. The tongue is at midline. Cardiovascular: Regular rate and rhythm with S1, S2 present. No murmurs, rubs, clicks, or gallops. There is no JVD or peripheral edema. Pulmonary: Symmetrical chest expansion without use of accessory muscles. Clear to auscultation bilaterally without rhonchi, wheeze, or rales. Abdomen: Bowel sounds in all quadrants. Soft, nontender to palpation. Musculoskeletal: The right leg has a clean, dry, and intact dressing in place without drainage noted on the dressing. Sensation is intact distally. The patient is able to wiggle digits distally. Neuro: The patient is awake. She is alert and oriented x3. Cranial nerves are grossly intact. ASSESSMENT AND PLAN: Ms. Nye is a 59-year-old female with a past medical history of hypertension, anxiety and right hip avascular necrosis, who presented to [facility] today for an elective right total hip arthroplasty. She will be admitted inpatient for: 1. Right total hip arthroplasty. Management per ortho team. Weightbearing as tolerated. PT/OT per Ortho. Pain management and bowel regimen. 2. Hypertension. Continue propranolol b.i.d. with hold parameters. 3. Anxiety. The patient reports occasional anxiety. She will continue her home propranolol medication. 4. Melanoma in situ. The patient follows outpatient with Dr. Ferguson. 5. DVT prophylaxis: Per Ortho, apixaban 2.5 mg p.o. b.i.d. 6. Code status: Full code. At this time, we will sign off on this patient. Thank you for allowing us to participate in the care of Ms. Nye. Please do not hesitate to reconsult for any concerns. TIME SPENT: Approximately 30 minutes was spent on this consultation, greater than half that time was spent [id number] with the patient obtaining history, performing physical, and reviewing the plan of care. The case has been discussed with my attending, Dr. Mendoza, who is in agreement with the plan of care. BELLO GRIFFITH [id number]/CPS #: [id number] [email or web address]
[2020-01-03] MEDS: oxyCODONE/Acetamin 5/325 MG* TAB PO PRN (19:10)
[2020-01-03] MEDS: Cyclobenzaprine TAB* 10 MG PO PRN (19:10)
[2020-01-03] MEDS ORDERED: Gabapentin CAP(*) 300 MG PO PRN (19:18)
[2020-01-03] MEDS: Gabapentin CAP(*) 300 MG PO SCH (20:43)
[2020-01-03] MEDS: ceFAZolin 1 GM ADVAN(*) 1 GM in NS 0.9% 50 ML* 50 ML IVPB SCH (20:44)
[2020-01-03] MEDS: Magnesium Hydroxide LIQ* 30 ML UDC PO SCH (20:44)
[2020-01-03] MEDS: Docusate CAP* 100 MG PO SCH (20:44)
[2020-01-03] MEDS ORDERED: LORazepam TAB(*) 0.5 MG PO PRN (21:41)
[2020-01-04] MEDS: oxyCODONE/Acetamin 5/325 MG* TAB PO PRN ×5 (01:15→20:22)
[2020-01-04] MEDS: oxyCODONE TAB* 5 MG TAB PO PRN ×3 (03:47→11:52)
[2020-01-04] MEDS: Cyclobenzaprine TAB* 10 MG PO PRN ×2 (03:47→09:49)
[2020-01-04] MEDS: Lactated Ringers 1000 ML Bag* 1,000 ML IV SCH (03:48)
[2020-01-04] MEDS: ceFAZolin 1 GM ADVAN(*) 1 GM in NS 0.9% 50 ML* 50 ML IVPB SCH ×2 (04:44→11:53)
[2020-01-04 05:39] LABS: Hematocrit 29 % (35-47); Hemoglobin 9.7 g/dL (12.0-16.0); Mean Platelet Volume 7.5 fL (7.4-10.4); Platelet Count 208 10^3/uL (150-450)
[2020-01-04 05:57] LABS: BUN/Creatinine Ratio 12.5 (8-20); EGFR Non-African American 82.6 (>60); Potassium 3.9 mmol/L (3.5-5.0)
--- NOTE | 2020-01-04 09:22 | PN ---
Progress Note - Progress Note Date of Service: 01/04/20 SOAP: Subjective: [Patient seen lying in bed. Patient states she is feeling well, pain controlled on meds. She still has to do PT today. She is not ready to go home due to the weather but otherwise feeling ready. She denies CP, SOB, f/c. Objective: [Gen: A&O. NAD RLE: Dressing C/D/I. No tenderness to palpation about thigh. Calves soft and nontender with no palpable cords. + knee f/e. + ankle Df/Pf. DP pulse 2+. Assessment: [POD#[address] Tao] Plan: [Cont pain meds as needed Cont PT DVT ppx WBAT likely d/c home tomorrow] Laboratory Last Values Hgb 9.7 g/dL (12.0-16.0) L 01/04/20 05:17 Hct 29 % (35-47) L 01/04/20 05:17 Plt Count 208 10^3/uL (150-450) 01/04/20 05:17 MPV 7.5 fL (7.4-10.4) 01/04/20 05:17 Sodium 139 mmol/L (135-145) 01/04/20 05:17 Potassium 3.9 mmol/L (3.5-5.0) 01/04/20 05:17 Chloride 107 mmol/L (101-111) 01/04/20 05:17 Carbon Dioxide 29 mmol/L (22-32) 01/04/20 05:17 Anion Gap 3 mmol/L (2-11) 01/04/20 05:17 BUN 9 mg/dL (6-24) 01/04/20 05:17 Creatinine 0.72 mg/dL (0.51-0.95) 01/04/20 05:17 Est GFR ( Amer) 100.0 (>60) 01/04/20 05:17 Est GFR (Non-Af Amer) 82.6 (>60) 01/04/20 05:17 BUN/Creatinine Ratio 12.5 (8-20) 01/04/20 05:17 Glucose 130 mg/dL (70-100) H 01/04/20 05:17 Calcium 8.0 mg/dL (8.6-10.3) L 01/04/20 05:17 Vital Signs Temp Pulse Resp BP Pulse Ox 99.2 F 73 18 102/48 94 01/04/20 07:48 01/04/20 07:48 01/04/20 08:04 01/04/20 07:48 01/04/20 07:48
[2020-01-04] MEDS: Docusate CAP* 100 MG PO SCH ×2 (09:44→20:22)
[2020-01-04] MEDS: Apixaban* 2.5 MG TAB PO SCH ×2 (09:44→20:22)
[2020-01-04] MEDS: Vitamin THERAPEUTIC TAB PO SCH (09:45)
[2020-01-04] MEDS: Magnesium Hydroxide LIQ* 30 ML UDC PO SCH ×2 (09:45→20:23)
[2020-01-04] MEDS: Morphine INJ* 2 MG/ML 1 ML SYRINGE (TWO MG - NEW SYRINGE VERSION) IV PRN (13:42)
[2020-01-04] MEDS: Gabapentin CAP(*) 300 MG PO SCH (20:22)
[2020-01-05] MEDS: oxyCODONE/Acetamin 5/325 MG* TAB PO PRN ×3 (00:50→09:18)
[2020-01-05 05:39] LABS: Hematocrit 29 % (35-47); Mean Platelet Volume 7.8 fL (7.4-10.4); Platelet Count 215 10^3/uL (150-450)
[2020-01-05 07:44] VITALS: BP 111/54
[2020-01-05] MEDS: Cyclobenzaprine TAB* 10 MG PO PRN (07:58)
[2020-01-05] MEDS: Vitamin THERAPEUTIC TAB PO SCH (08:01)
[2020-01-05] MEDS: Apixaban* 2.5 MG TAB PO SCH (08:01)
[2020-01-05] MEDS: Docusate CAP* 100 MG PO SCH (08:01)
[2020-01-05] MEDS: Magnesium Hydroxide LIQ* 30 ML UDC PO SCH (08:02)
--- NOTE | 2020-01-05 10:58 | DS ---
Orthopedic Discharge Summary - Discharge Summary Date of Admission:01/03/20 Date of Discharge: 01/05/2020 Date of Surgery: 01/03/2020 Attending Orthopedic Provider: Dr. Tao Pre-operative Diagnosis: Right hip osteoarthritis Operative Procedure: Right total hip arthroplasty Disposition of Patient:Home Home care vs Outpatient services: Outpatient services Condition of Patient: Good Pain medication RX at discharge: Percocet 5/325 - 1 - 2 tabs every 6 hours prn pain, Cyclobenzaprine 5mg DVT prophylaxis RX at discharge: Eliquis 2.5 mg History: BASSAM ROWE is a 59 year old F with years of increasingly severe right hip pain. Patient has failed conservative management and has elected to undergo a right total hip replacement Hospital Course: BASSAM was admitted to [facility] on 01/03/20. Patient underwent a right total hip replacement without complication followed by a brief recovery in PACU and transfer to the Short Stay Surgical Unit in stable condition. Our physical therapy and occupational therapy also participated in this patients care. Post-op day 1: patient was alert and in no acute distress. Dressing was clean, dry and intact. Operative extremity dorsiflexion and plantarflexion intact, sensation intact to light touch distally , DP2+. Post-op day two: dressing was changed, incision was clean, dry and intact. Patient was deemed to be medically and orthopedically stable for discharge. Physical therapy goals were met. Home Medications Medication Instructions Recorded Confirmed Type Ibuprofen TAB* [Motrin TAB* 400 MG] 2 tab PO TID PRN 01/11/14 12/31/19 History Propranolol 20 mg TAB [Inderal 20 20 mg PO BID 02/14/19 01/03/20 History mg TAB] Mahesh-E 800 mg PO QAM 11/14/19 01/03/20 History Turmeric 1 tab.chew PO BID 11/14/19 01/03/20 History Cannabidiol (Cbd) Extract 20 mg PO BID 12/31/19 01/03/20 History [Epidiolex] Gabapentin 300 mg PO ONCE 12/31/19 01/03/20 History Discharge Instructions following Orthopedic Surgery: Activity: * Weight Bearing as tolerated * Continue physical therapy and occupational therapy exercises as shown * If you have elected to have home physical therapy, continue therapy exercises at home. If you have elected outpatient physical therapy, please start therapy as an outpatient right away. Hip replacements: Continue Hip Precautions- do not cross legs or bend greater than 90 degrees/squat Wound care: * OK to shower on post-op day 3, no bathing, swimming, or submerging wound. * Use gentle soap, pat dry. Cover with gauze, RIANA wrap or tape. * If you elected to have a visiting home nurse, they will perform wound checks. Call Orthopedic office for: * Increased drainage * Redness * Increased pain * Fever Go to ER with shortness of breath or chest pain. Diet: * Regular diet * Increase fluids and fiber to prevent constipation. * Continue to use stool softeners, call office if no bowel motion within 48 hours. Medications See Home Medication List in your packet for medications that you should take after discharge. DVT Prophylaxis: Eliquis Dosin.5 mg, 1 tab every 12 hours x 30 days Pain Control: Percocet 5/325 mg 1 tab for moderate pain and 2 tabs for severe pain by mouth every 4 hours as needed. Maximum of 10 tabs per day. Hold for sedation , wean off as soon as pain allows Please note that Percocet contains Tylenol (acetaminophen). Maximum daily dose of Tylenol is 4000 mg from all sources. Antibiotics are required prior to any dental work. FOLLOW UP: Follow up with Dr. Tao Within 10 - 14 days, call for appointment Please call our office with any questions or concerns ([phone])
== END 2020-01-05 11:45 | disposition home or self-care (01) | DRG 301 ==
LOC: AA 10:20 → SSU 15:35
PROVIDERS: ADMIT Orthopaedic Surgery Adult Reconstructive Orthopaedic Surgery; ATTEND Orthopaedic Surgery Adult Reconstructive Orthopaedic Surgery
PROC: 0SR904A Replacement of Right Hip Joint with Ceramic on Polyethylene Synthetic Substitute, Uncemented, Open Approach (ICD-10-PCS; principal; 2020-01-03 13:00)
DX: M16.11 Unilateral primary osteoarthritis, right hip (principal); F41.9 Anxiety disorder, unspecified; I10 Essential (primary) hypertension; E78.00 Pure hypercholesterolemia, unspecified; C43.9 Malignant melanoma of skin, unspecified; Z79.899 Other long term (current) drug therapy; Z88.8 Allergy status to other drugs, medicaments and biological substances; Z82.49 Family history of ischemic heart disease and other diseases of the circulatory system; Z80.1 Family history of malignant neoplasm of trachea, bronchus and lung; Z82.69 Family history of other diseases of the musculoskeletal system and connective tissue
CPT/HCPCS: 36415; 72170; 80048; 85014; 85018; 85049; A9270-GY; C1776; J0690; J2250; J2270; J2704; J2795; J3010

== ENCOUNTER 2020-01-19 14:45 | Inpatient (IN) | payer OTHER ==
--- OUTSIDE RECORDS SUMMARY | 2020-01-19 14:58 | XMS REPORT | Continuity of Care Document ---
:1960 External Reference #:[id number] Author Name BELLO Willingham (transmitted by agent of provider Nandini Gautam) Address [address], [facility] [place] [address] Care Team Providers Name Role Phone Susan Toussaint MD - Internal Care Team Information Personal Care Assistant Medicine Problems Active Problems Provider Date Localized, [...] Use Denies Drug Use Smoking Status Reviewed: 01/14/20 Patient has never smoked Exercise Type/Frequency Exercises rarely Allergies, Adverse Reactions, Alerts Active Allergies Reaction Severity Comments Date Epinephrine 03/17/2018 Inactive Allergies NKDA 01/10/2014 Medications Active Medications SIG Qnty Indications Ordering Date Provider Evon take 1 tab 60tabs Emelia Tao, 01/05/2020 2.5mg Tablets twice a day x M.D. 30 days Cyclobenzaprine HCL 1-2 tablets by 30tabs Emelia Tao, 01/05/2020 5mg mouth every 8 M.D. Tablets hours as needed for muscle spasm Ibuprofen 2-3 tabs q8h Unknown 200mg Tablets prn Propranolol HCL 1 by mouth Unknown 20mg Tablets twice a day Gabapentin 1 tab PO 5 Unknown 300mg Capsules times a day Aspir-Low 1 by mouth Unknown 81mg Tablets DR every day Atorvastatin Calcium 1 by mouth Unknown 20mg every day (not Tablets started yet) Mahesh-E 1 tab once per Unknown 400mg Tablets day Melatonin 1 by mouth @ at Unknown 3mg Capsules bedtime prn CBD Oil prn Unknown History Medications Percocet 1 - 2 tabs by 42tabs Emelia Tao, 01/05/2020 - 5-325mg mouth every 6 M.D. 01/13/2020 Tablets hours as needed for pain. Medications Administered in Office Medication SIG Qnty Indications Ordering Provider Date Depomedrol 40MG Emelia Tao M.D. 08/08/2019 Injection Depomedrol 40MG Emelia Tao M.D. 04/20/2019 Injection Depomedrol 40MG Emelia Tao M.D. 03/23/2019 Injection Immunizations Description No Information Available Vital Signs Date Vital Result Comment 01/14/2020 1:14pm Height 67.5 inches 5'7.50" Heart Rate 80 /min BP Systolic 138 mmHg BP Diastolic 80 mmHg Respiratory Rate 20 /min Body Temperature 97.3 F Pain Level 5 12/28/2019 11:35am Height 67.5 inches 5'7.50" Weight 128.00 lb Heart Rate 70 /min BP Systolic 132 mmHg BP Diastolic 70 mmHg Respiratory Rate 14 /min Body Temperature 98.1 F Pain Level 6 BMI (Body Mass Index) 19.7 kg/m2 Results Test Acquired Date Facility Test Result H/L Range Note Basic Metabolic 12/31/2019 [facility] Sodium 141 mmol/L Normal 135-145 Panel [address] [place] [address] [phone] Potassium 4.7 mmol/L Normal 3.5-5.0 Chloride 105 mmol/L Normal 101-111 Co2 Carbon Dioxide 30 mmol/L Normal 22-32 Anion Gap 6 mmol/L Normal 2-11 Glucose 74 mg/dL Normal 70-100 Blood Urea Nitrogen 17 mg/dL Normal 6-24 Creatinine 0.77 mg/dL Normal 0.51-0.95 BUN/Creatinine Ratio 22.1 High 8-20 Calcium 9.2 mg/dL Normal 8.6-10.3 Egfr Non- 76.5 >60 Egfr 92.5 >60 1 CBC Auto 12/31/2019 [facility] White Blood 5.0 10^3/uL Normal 3.5-10.[address] [place] [address] [phone] Red Blood Count 3.91 10^6/uL Normal 3.70-4.87 Hemoglobin 12.0 g/dL Normal 12.0-16.0 Hematocrit 36 % Normal 35-47 Mean Corpuscular Volume 91 fL Normal 80-97 Mean Corpuscular Hemoglobin 31 pg Normal 27-31 Mean Corpuscular HGB Conc 34 g/dL Normal 31-36 Red Cell Distribution Width 14 % Normal 10-15 Platelet Count 294 10^3/uL Normal 150-450 Mean Platelet Volume 7.9 fL Normal 7.4-10.4 Abs Neutrophils 3.2 10^3/uL Normal 1.5-7.7 Abs Lymphocytes 1.1 10^3/uL Normal 1.0-4.8 Abs Monocytes 0.5 10^3/uL Normal 0-0.8 Abs Eosinophils 0.2 10^3/uL Normal 0-0.6 Abs Basophils 0.1 10^3/uL Normal 0-0.2 Abs Nucleated RBC 0.0 10^3/uL Granulocyte % 63.3 % Lymphocyte % 22.7 % Monocyte % 9.2 % Eosinophil % 3.7 % Basophil % 1.1 % Nucleated Red Blood Cells % 0.0 Urinalysis Profile 12/31/2019 [facility] Urine Color Lainey [address] [place] [address] [phone] Urine Appearance Cloudy Urine Specific [place] 1.027 Normal 1.010-1.030 Urine pH 5.0 Normal 5-9 Urine Urobilinogen Negative Negative Urine Ketones Negative Negative Urine Protein Negative Negative Urine Leukocytes Negative Negative Urine Blood Negative Negative * * Abnormal Negative 2 Urine Nitrite Negative Negative Urine Bilirubin Negative Negative Urine Glucose Negative Negative Type & Screen 12/31/2019 [facility] Patient Blood Type AB Negative [address] [place] [address] [phone] Antibody Screen NEGATIVE Urine Culture And 12/31/2019 [facility] Urine SEE RESULT [address] [place] [place] [address] [phone] CBC Auto Diff 11/14/2019 [facility] White Blood 5.9 10^3/uL Normal 3.5-[address] 0[address] [place] [address] [phone] Red Blood Count 3.77 10^6/uL Normal 3.70-4.87 [...] Blood Cells % 0.0 Urinalysis Profile 11/14/2019 [facility] Urine Color Yellow [address] [place] [address] [phone] Urine Appearance Cloudy Urine Specific [place] 1.010 Normal 1.010-1.030 Urine pH 5.0 Normal 5-9 Urine Urobilinogen Negative Negative Urine Ketones Negative Negative Urine Protein Negative Negative Urine Leukocytes Negative Negative Urine Blood Negative Negative Urine Nitrite Negative Negative Urine Bilirubin Negative Negative Urine Glucose Negative Negative Comp Metabolic 11/14/2019 [facility] Sodium 142 mmol/L Normal 135-145 Panel [address] [place] [address] [phone] Potassium 4.4 mmol/L Normal 3.5-5.0 Chloride 107 [...] Egfr Non- 78.8 >60 Egfr 95.4 >60 4 Inr/Protime 11/14/2019 [facility] Inr 0.98 Normal 0.82-1.[address] [place], [place] [address] [phone] Laboratory test 11/14/2019 [facility] Partial 39.9 High 26.0- 38.[address] [place] [address] Time PTT [phone] Urine Culture And 11/14/2019 [facility] Urine SEE RESULT [address] Culture BELOW [place], [place] [id number] [phone] Xray 08/08/2019 [facility] Inj/Aspir <pending> Major JT Or [...] 5 Kidney failure <15 (or dialysis) 2 *Ascorbic acid is present which may interfere with detection of blood. 3 SEE RESULT BELOW Name: DANIELLE NYE : [address]: Emelia Tao MD Acct: [id number] Unit: [id number] AGE: 59 Location: PAT Re12/31/19 SEX: F Status: REG REF SPEC: [id number] ERIN: 12/31/19-[address] [facility] [address]: Emelia Tao MD REQ: [id number] RECD: 12/31/19 STATUS: ELINA TAYLOR DR: Susan Toussaint MD _ SOURCE: URINE SPDESC: ORDERED: Urine Culture Procedure Result Reported Site Urine Culture Final 01/01/20- 1122 ML No Growth (<1,000 CFU/mL) * ML - Main Lab . END OF REPORT DEPARTMENT OF PATHOLOGY, [address] [place] [address] Christopher Cartwright M.D. Director [facility] # [id number] 4 Because ethnic data is not always readily [...] 15-29 5 Kidney failure <15 (or dialysis) 5 Standard intensity warfarin therapeutic range: 2.0-3.0 High intensity warfarin therapeutic range: 2.5-3.5 6 SEE RESULT BELOW Name: DANIELLE NYE : [address]: Emelia Tao MD Acct: [id number] Unit: [id number] AGE: 59 Location: [facility] Re11/14/19 SEX: F Status: REG REF SPEC: [id number] ERIN: 11/14/[address]: Emelia Tao MD REQ: [id number] RECD: 11/14/19 STATUS: COMP _ SOURCE: URINE SPDESC: ORDERED: Urine Culture QUERIES: Urine Source: Clean Catch Procedure Result Reported Site Urine Culture Final 11/15/19- 1450 ML No Growth (<1,000 CFU/mL) * ML - Main Lab . END OF REPORT DEPARTMENT OF PATHOLOGY, [address] [place] [address] Christopher Cartwright M.D. 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 M76.01 Gluteal tendinitis, right hip M25.551 Pain in right hip W00.9xxD Unspecified fall due to ice and snow, subsequent encounter M70.61 Trochanteric bursitis, right hip Office Visit 12/12/2019 11:15a [facility] M25.551 Pain in right at [facility] hip 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 M76.01 Gluteal tendinitis, right hip M70.61 Trochanteric bursitis, right hip M16.11 Unilateral primary osteoarthritis, right hip Office Visit 08/08/2019 11:30a [facility] 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 at [facility] aseptic necrosis of right femur M76.01 Gluteal tendinitis, right hip M25.551 Pain in right hip W00.9xxD Unspecified fall due to ice and snow, subsequent encounter M70.61 Trochanteric bursitis, right hip M16.11 Unilateral primary osteoarthritis, right hip 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 femur 12/28/2019 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 aseptic necrosis of right Emelia Tao M.D. femur 12/28/2019 M76.01 Gluteal tendinitis, right hip Emelia Tao M.D. 12/28/2019 M25.551 Pain in right hip Krupa WilkinsD. 12/28/2019 W00.9xxD Unspecified fall due to ice and snow, Emelia Tao M.D. subsequent encounter 12/28/2019 M70.61 Trochanteric bursitis, right hip Emelia Tao M.D. 12/12/2019 M25.551 Pain in right hip Emelia [...] Tao M.D. femur Plan of Treatment Future Appointment(s):02/11/2020 1:45 pm - Emelia Tao M.D. at [facility] at [facility]2701/14/2020 - Vaishali Boyd, PAM25.551 Pain in right hipNew Therapy:Physical TherapyFollow up:Follow up: 4 xnjtsJ19.11 Unilateral primary osteoarthritis, right hip Functional Status Description No Information Available Mental Status Description No Information Available Referrals Description No Information Available
--- NOTE | 2020-01-19 16:26 | ED ---
ED Sedation - Procedural Sedation/Analgesia Sedation Course: RT Present, Emergency Airway Equipment Available, Informed Consent Obtained, Time Out Completed, End-tidal Capnography Utilized Adverse Reactions Experienced by Patient: None Mallampati Classification: Class I ASA Classification: Class I: Normal/Healthy Diagnosis: R hip dislocation Pre-Procedural Heart: S1 and S2 Pre-Procedural Lungs: Clear Auscultation Comment/Plan of Care: Sedation required 200mg Propofol over mulitple doses during procedure. See nursing notes for time frame. Near the end of the procedure, with response to painful stimuli, patient experienced one minute of apnea with some assisted breathing with no desaturation. Provider Procedure Attestation: With My Signature Below, I Attest to have Personally Reviewed and Agree with the Pre-Sedation History and Pre-Service Assessment Update Cleared for Moderate Sedation: Yes Pre-Procedural Diagnosis: R hip dislocation Post-Procedural Diagnosis: R hip dislocation Procedure: Multiple attempts made with unsuccessful reduction. Estimated Blood Loss: None Specimen(s): None Findings: None Implants/Tubes/Drains Placed: None - Attestation Statements Document Initiated by Scribe: Yes Documenting Scribe: Stephy Hunter Provider For Whom Scribe is Documenting (Include Credential): Dr. Jayce Sanchez MD Scribe Attestation: I, Stephy Hunter scribed for Dr. Jayce Sanchez MD on 01/19/20 at 1820. Scribe Documentation Reviewed: Yes Provider Attestation: The documentation as recorded by the scribeStephy accurately reflects the service I personally performed and the decisions made by me, Dr. Jayce Sanchez MD Status of Scribe Document: Viewed
[2020-01-19] MEDS ORDERED: Propofol* 10 MG/ML 20 ML BTL IV PUSH ONE (16:30)
--- NOTE | 2020-01-19 17:44 | ED ---
Lower Extremity - HPI Summary HPI Summary: This patient is a 59-year-old otherwise healthy female who presents to the ED with right probable hip dislocation. She is 2 weeks status post right total hip replacement by Dr. Tao. She states she has been attending. Ambulating with good effect. Continues to ambulate well with a walker. She states she was ambulating so well, she fell she may have not needed the walker anymore, however continued to have it nearby. Since , she has not been able to bear weight, she has stated her leg is slightly shorter, and she is now unable to move at the hip or flex and extend at the knee. She has needed full weight on her walker since that time. She states she has called Ortho twice, but thought it could be a muscle pain. - History of Current Complaint Chief Complaint: EDHipPelvisInjury Stated Complaint: RIGHT HIP INJURY PER PT Time Seen by Provider: 01/19/20 14:59 Hx Obtained From: Patient Onset of Pain: Minutes Onset/Duration: Minutes Severity Initially: Mild Severity Currently: Mild Pain Intensity: 8 Pain Scale Used: 0-10 Numeric Location: Is Discrete @ - right hip Associated Signs And Symptoms: Negative: Swelling, Redness, Bruising Aggravating Factor(s): Standing, Ambulation Alleviating Factor(s): Rest - Risk Factors Gout Risk Factors: Negative DVT Risk Factors: Negative Septic Arthritis Risk Factor: Negative - Allergies/Home Medications Allergies/Adverse Reactions: Allergies Allergy/AdvReac Type Severity Reaction Status Date / Time epinephrine Allergy Intermediate Palpitation Verified 01/19/20 14:52 s Home Medications: Home Medications Ibuprofen TAB* [Motrin TAB* 400 MG] 2 tab PO TID PRN 01/11/14 [History Confirmed 01/19/20] Propranolol 20 mg TAB [Inderal 20 mg TAB] 20 mg PO BID 02/14/19 [History Confirmed 01/19/20] Mahesh-E 800 mg PO QAM 11/14/19 [History Confirmed 01/19/20] Turmeric 1 tab.chew PO BID 11/14/19 [History Confirmed 01/19/20] Cannabidiol (Cbd) Extract [Epidiolex] 20 mg PO BID 12/31/19 [History Confirmed 01/19/20] Gabapentin 300 mg PO ONCE 12/31/19 [History Confirmed 01/19/20] Apixaban* [Eliquis*] 2.5 mg PO BID tab 01/05/20 [Rx Confirmed 01/19/20] PMH/Surg Hx/FS Hx/Imm Hx Previously Healthy: Yes Endocrine/Hematology History: Denies: Hx Bone Marrow Disease, Hx Diabetes, Hx Sickle Cell Disease, Hx Thyroid Disease, Hx Anemia Cardiovascular History: Reports: Hx Hypertension Denies: Hx Angina, Hx Cardiomegaly, Hx Congestive Heart Failure, Hx Coronary Artery Disease, Hx Hypercholesterolemia, Hx Myocardial Infarction, Hx Pacemaker/ ICD, Hx Peripheral Vascular Disease, Hx Rheumatic Fever, Hx Valvular Heart Disease, Other Cardiovascular Problems/Disorders Respiratory History: Denies: Hx Asthma, Hx Chronic Obstructive Pulmonary Disease (COPD), Hx Pulmonary Edema, Hx Pulmonary Embolism, Hx Sleep Apnea, Other Respiratory Problems/Disorders GI History: Denies: Hx Cirrhosis, Hx Crohn's Disease, Hx Gastroesophageal Reflux Disease , Hx Hiatal Hernia, Hx Irritable Bowel, Hx Jaundice, Hx Ulcer, Other GI Disorders History: Denies: Hx Dialysis, Hx Kidney Infection, Hx Kidney Stones, Hx Renal Disease , Other Problems/Disorders Musculoskeletal History: Reports: Hx Arthritis, Hx Rheumatoid Arthritis, Hx Bursitis - RIGHT HIP S/P FALL, Other Musculoskeletal History Denies: Hx Tendonitis Sensory History: Reports: Hx Contacts or Glasses - WILL WEAR GLASSES DAY OF Denies: Hx Cataracts, Hx Glaucoma, Hx Hearing Aid Opthamlomology History: Reports: Hx Contacts or Glasses - WILL WEAR GLASSES DAY OF Denies: Hx Cataracts, Hx Glaucoma Neurological History: Denies: Hx Dementia, Hx Headaches, Hx Migraine, Hx Nerve Disease, Hx Seizures , Other Neuro Impairments/Disorders Psychiatric History: Reports: Hx Anxiety - JUST FOR PAST YEAR, NO MEDS Denies: Hx Depression, Hx Panic Disorder, Other Psychiatric Issues/Disorders - Cancer History Cancer Type, Location and Year: Melanoma in situ 1994 Hx Chemotherapy: No - Surgical History Surgery Procedure, Year, and Place: PAROTID TUMOR REMOVED-1997CM. SINUS SURGERY-1988-. Lt HAND - Ganglion cyst removed january 2014 Hx Anesthesia Reactions: No - Immunization History Hx Pertussis Vaccination: No Immunizations Up to Date: Yes Infectious Disease History: No Infectious Disease History: Denies: Hx Clostridium Difficile, Hx Hepatitis, Hx Human Immunodeficiency Virus (HIV), Hx of Known/Suspected MRSA, Hx Shingles, Hx Tuberculosis, Traveled Outside the [place] in Last 30 Days - Family History Known Family History: Positive: Cardiac Disease - Mother, Hypertension - both parents Family History: Mother with Parkinson's. Father with myositis. - Social History Occupation: Employed Full-time Lives: With Family Alcohol Use: None Alcohol Amount: 1-2 DRINKS PER WEEK Substance Use Type: Reports: None Smoking Status (MU): Never Smoked Tobacco Have You Smoked in the Last Year: No Review of Systems Negative: Fever, Chills, Fatigue, Skin Diaphoresis Negative: Palpitations, Chest Pain Negative: Shortness Of Breath, Cough Genitourinary: Negative Positive: no symptoms reported, see HPI Positive: Arthralgia - right hip pain Negative: Rash, Bruising Neurological/Mental Status: Negative All Other Systems Reviewed And Are Negative: Yes Physical Exam Triage Information Reviewed: Yes Vital Signs On Initial Exam: Initial Vitals Temp Pulse Resp BP Pulse Ox 99.7 F 85 16 140/88 99 01/19/20 14:47 01/19/20 14:47 01/19/20 14:47 01/19/20 14:47 01/19/20 14:47 Vital Signs Reviewed: Yes Appearance: Positive: Well-Appearing, Well-Nourished Skin: Positive: Warm, Skin Color Reflects Adequate Perfusion Head/Face: Positive: Normal Head/Face Inspection Eyes: Positive: EOMI, ROSELYN, Conjunctiva Clear Neck: Positive: Supple, No Lymphadenopathy Respiratory/Lung Sounds: Positive: Clear to Auscultation, Breath Sounds Present Cardiovascular: Positive: RRR, Pulses are Symmetrical in both Upper and Lower Extremities Musculoskeletal: Positive: Normal, Strength/ROM Intact Neurological: Positive: Speech Normal Psychiatric: Positive: Normal, Affect/Mood Appropriate AVPU Assessment: Alert Procedures - Sedation Patient Received Moderate/Deep Sedation with Procedure: No Diagnostics - Vital Signs Vital Signs Temp Pulse Resp BP Pulse Ox 01/19/20 17:26 159/62 01/19/20 17:21 79 131/88 97 01/19/20 17:16 80 164/88 100 01/19/20 17:11 80 177/102 99 01/19/20 17:06 88 163/98 100 01/19/20 17:01 72 156/86 100 01/19/20 17:00 73 95 01/19/20 16:55 75 158/88 97 01/19/20 16:51 75 132/88 98 01/19/20 16:47 80 147/91 98 01/19/20 16:46 82 156/88 98 01/19/20 16:36 83 163/82 96 01/19/20 16:25 83 98 01/19/20 16:24 158/70 01/19/20 14:47 99.7 F 85 16 140/88 99 - Laboratory Lab Statement: Any lab studies that have been ordered have been reviewed, and results considered in the medical decision making process. Lower Extremity Course/Dx - Course Course Of Treatment: X-ray obtained which was an anterior right hip dislocation. Patient was given a total of 200 mg propofol while multiple attempts at reduction were unsuccessful (see separate sedation note.) Last PO intake 10am per patient. No blood thinners. Otherwise healthy. Discussed with Dr. Damico who will see patient and take to OR for conscious sedation reduction. - Diagnoses Differential Diagnosis/HQI/PQRI: Positive: Sprain, Strain Provider Diagnoses: Hip dislocation, right Discharge ED - Sign-Out/Discharge Documenting (check all that apply): Patient Departure - Discharge Plan Condition: Fair Disposition: ADMITTED TO [facility] - Billing Disposition and Condition Condition: FAIR Disposition: Admitted to [facility] - Attestation Statements Provider Attestation: See my separate sedation note, Jayce Sanchez MD
[2020-01-19] MEDS ORDERED: Midazolam* 1 MG/ML 5 ML VIAL (5 MG) ONE (18:11)
[2020-01-19] MEDS ORDERED: fentaNYL* 50 MCG/ML 2 ML VIAL (100 MCG VIAL) ONE (18:19)
[2020-01-19] MEDS ORDERED: Succinylcholine* 20 MG/ML 10 ML VIAL ONE (18:55)
[2020-01-19] MEDS ORDERED: Ondansetron INJ* 2 MG/ML VIAL ONE (18:55)
[2020-01-19] MEDS ORDERED: Propofol* 10 MG/ML 20 ML BTL ONE (18:55)
[2020-01-19] MEDS ORDERED: diPHENhydraMINE PO* 25 MG PO PRN (19:12)
[2020-01-19] MEDS ORDERED: Ondansetron ODT TAB* 4 MG PO PRN (19:12)
[2020-01-19] MEDS ORDERED: diPHENhydraMINE IV* 50 MG/ML 1 ml VIAL (BENADRYL) IV PRN (19:12)
[2020-01-19] MEDS ORDERED: oxyCODONE/Acetamin 5/325 MG* TAB PO PRN (19:12)
[2020-01-19] MEDS ORDERED: Ondansetron INJ* 2 MG/ML VIAL IV PRN (19:12)
[2020-01-19] MEDS ORDERED: Acetaminophen TAB* 325 MG PO PRN (19:12)
[2020-01-19] MEDS ORDERED: Naloxone* 0.4 MG/ML 1 ML VIAL IV PRN (19:18)
[2020-01-19] MEDS ORDERED: HYDROcodone/ACETAMIN 5-325 MG* 1 TAB PO PRN (19:18)
[2020-01-19] MEDS ORDERED: HYDROmorphone INJ1* 1 MG/ML SYRINGE ONE (19:22)
[2020-01-19] MEDS ORDERED: Magnesium Hydroxide LIQ* 30 ML UDC PO PRN (19:22)
[2020-01-19] MEDS ORDERED: Polyethylene Glycol 3350* 17 GM PACKET PO PRN (19:23)
[2020-01-19] MEDS: HYDROmorphone INJ1* 1 MG/ML SYRINGE IV PRN ×5 (19:30→20:04)
[2020-01-19] MEDS ORDERED: Midazolam* 1 MG/ML 2 ML VIAL (2 MG) ONE (19:39)
[2020-01-19] MEDS: Midazolam* 1 MG/ML 2 ML VIAL (2 MG) IV SLOW PU ONE ×2 (19:45→20:07)
[2020-01-19] MEDS ORDERED: Gabapentin CAP(*) 300 MG PO SCH (20:00)
[2020-01-19] MEDS ORDERED: HYDROcodone/ACETAMIN 5-325 MG* 1 TAB ONE (20:09)
[2020-01-19] MEDS: Morphine INJ* 2 MG/ML 1 ML SYRINGE (TWO MG - NEW SYRINGE VERSION) IV PRN (21:24)
[2020-01-19] MEDS: Lactated Ringers 1000 ML Bag* 1,000 ML IV SCH (22:00)
[2020-01-19] MEDS: Docusate CAP* 100 MG PO SCH (22:02)
[2020-01-19] MEDS: oxyCODONE/Acetamin 5/325 MG* TAB PO PRN (22:33)
[2020-01-19 22:52] LABS: Urine Appearance Clear; Urine Bilirubin Negative (Negative); Urine Blood 1+ (Negative); Urine Color Yellow; Urine Glucose Negative (Negative); Urine Ketones Negative (Negative); Urine Nitrite Negative (Negative); Urine Protein Negative (Negative); Urine Specific Gravity 1.005 (1.010-1.030); Urine Urobilinogen Negative (Negative)
[2020-01-19 23:02] LABS: Urine Bacteria Absent (Absent); Urine Red Blood Cell Trace(0-2/hpf) (Absent); Urine Squamous Epithelial Cell Present (Absent); Urine White Blood Cell Trace(0-5/hpf) (Absent)
[2020-01-20] MEDS: oxyCODONE TAB* 5 MG TAB PO PRN ×5 (00:20→21:39)
[2020-01-20] MEDS: oxyCODONE/Acetamin 5/325 MG* TAB PO PRN ×4 (03:35→19:26)
[2020-01-20] MEDS: Cyclobenzaprine TAB* 10 MG PO PRN ×3 (06:33→22:51)
[2020-01-20] MEDS ORDERED: Enoxaparin(*) 40 MG/0.4 ML SYR SUBCUT SCH (08:00)
[2020-01-20] MEDS: Docusate CAP* 100 MG PO SCH ×2 (08:52→21:36)
[2020-01-20] MEDS: Lactated Ringers 1000 ML Bag* 1,000 ML IV SCH (09:37)
[2020-01-20 11:05] LABS: ABS Basophils 0.1 10^3/ul (0-0.2); ABS Eosinophils 0.2 10^3/ul (0-0.6); ABS Monocytes 0.6 10^3/ul (0-0.8); ABS Neutrophils 4.5 10^3/ul (1.5-7.7); Eosinophil % 2.5 %; Hematocrit 28 % (35-47); Hemoglobin 9.5 g/dL (12.0-16.0); Lymphocyte % 15.6 %; Mean Corpuscular HGB Conc 34 g/dL (31-36); Mean Corpuscular Hemoglobin 30 pg (27-31); Mean Corpuscular Volume 90 fL (80-97); Mean Platelet Volume 6.5 fL (7.4-10.4); Platelet Count 346 10^3/uL (150-450); Red Blood Count 3.14 10^6 /uL (3.70-4.87); Red Cell Distribution Width 14 % (10-15); White Blood Count 6.3 10^3/uL (3.5-10.8)
[2020-01-20 11:09] LABS: INR 1.16 (0.82-1.09)
--- NOTE | 2020-01-20 11:20 | PN ---
Progress Note - Progress Note Date of Service: 01/20/20 SOAP: Subjective: Pt. is in bed, nad. alert and oriented, reports back pain and R hip pain. Per patient she has had pain for 4 days, since . She denies a trauma or fall. Objective: Vital Signs: Temp Pulse Resp BP Pulse Ox 98.6 F 59 18 109/53 99 01/20/20 07:32 01/20/20 07:32 01/20/20 10:46 01/20/20 07:32 01/20/20 07:32 Laboratory Results - last 24 hr 01/19/20 01/20/20 22:40 10:59 WBC 6.3 RBC 3.14 L Hgb 9.5 L Hct 28 L MCV 90 MCH 30 MCHC 34 RDW 14 Plt Count 346 MPV 6.5 L Neut % (Auto) 70.8 Lymph % (Auto) 15.6 [place] % (Auto) 9.9 Eos % (Auto) 2.5 Baso % (Auto) 1.2 Absolute Neuts (auto) 4.5 Absolute Lymphs (auto) 1.0 Absolute Monos (auto) 0.6 Absolute Eos (auto) 0.2 Absolute Basos (auto) 0.1 Absolute Nucleated RBC 0.0 Nucleated RBC % 0.0 Urine Color Yellow Urine Appearance Clear Urine pH 7.0 Ur Specific [place] 1.005 L Urine Protein Negative Urine Ketones Negative Urine Blood 1+ A Urine Nitrate Negative Urine Bilirubin Negative Urine Urobilinogen Negative Ur Leukocyte Esterase Negative Urine WBC (Auto) Trace(0-5/hpf) Urine RBC (Auto) Trace(0-2/hpf) Ur Squamous Epith Cells Present A Urine Bacteria Absent Urine Glucose Negative RLE - shortened, 2+ palpable distal pulses dp and pt. distally foot is warm, + df/pf, full sens lt, thigh soft. Assessment: 59 yo s/p 01/03/20 uncomplicated RTHA. Postoperatively (POD 1) the patient was found by the nursing team to be taking additional pain medications from home in the hospital. She was heavily sedated and her personal belongings had to be held by the security team. At that time we openly discussed I felt she was abusing pain medication and should go to rehab after the postoperative recovery. She presents with 3 days of hip pain and no obvious dislocation event. She denies a trauma today, her history is not clear or typical. 2/22/20 films show anterior hip dislocation and two attempts to reduce it nonoperatively were not successful. Plan: Plan to take the patient to the OR for open reduction and possible revision. Unfortunately we need to wait another 24 hours and hold the eliquis. Bedrest with prn analgesia. She is currently neurovasculary intact. Labs ordered and reviewed. CT ordered to ensure that there is no periprosthetic fracture. Plan to get intraoperative cultures to ensure no infection. The patient and I discussed different intraoperative options and she would like minimal surgery if possible. We discussed revising the liner and head only, placing a dual mobility head/liner, placing a constrained liner, and revising the entire cup and/or stem. We formed a surgical plan together. Tentative surgery is 01/21/20. NPO after 8am on 01/21/20.
[2020-01-20 11:21] LABS: Albumin 3.2 g/dL (3.2-5.2); Albumin/Globulin Ratio 1.5 (1-3); BUN/Creatinine Ratio 17.2 (8-20); Calcium 8.7 mg/dL (8.6-10.3); EGFR African American 114.5 (>60); EGFR Non-African American 94.7 (>60); Globulin 2.2 g/dL (2-4); Potassium 3.7 mmol/L (3.5-5.0); Total Bilirubin 0.5 mg/dL (0.2-1.0); Total Protein 5.4 g/dL (6.4-8.9)
[2020-01-20] MEDS: Morphine INJ* 2 MG/ML 1 ML SYRINGE (TWO MG - NEW SYRINGE VERSION) IV PRN (11:56)
[2020-01-20] MEDS: traMADol TAB* 50 MG PO PRN ×2 (13:45→20:06)
[2020-01-20] MEDS ORDERED: [UNRECOGNIZED DRUG - OTHER] PO SCH (14:00)
[2020-01-20] MEDS: Gabapentin CAP(*) 300 MG PO SCH ×3 (14:12→21:36)
[2020-01-20] MEDS: CANNABIDIOL PO SCH (21:40)
[2020-01-21] MEDS: oxyCODONE/Acetamin 5/325 MG* TAB PO PRN ×4 (02:45→22:55)
[2020-01-21] MEDS: oxyCODONE TAB* 5 MG TAB PO PRN ×2 (03:13→08:46)
[2020-01-21] MEDS: Gabapentin CAP(*) 300 MG PO SCH ×5 (05:33→21:50)
[2020-01-21] MEDS: traMADol TAB* 50 MG PO PRN (05:33)
[2020-01-21] MEDS: Morphine INJ* 2 MG/ML 1 ML SYRINGE (TWO MG - NEW SYRINGE VERSION) IV PRN ×2 (07:47→14:22)
[2020-01-21] MEDS: Cyclobenzaprine TAB* 10 MG PO PRN (07:48)
[2020-01-21] MEDS ORDERED: Famotidine IV* 10 MG/ML 2 ML (20 mg) IV ONE (07:51)
[2020-01-21] MEDS: Docusate CAP* 100 MG PO SCH ×2 (08:47→21:50)
[2020-01-21] MEDS ORDERED: fentaNYL* 50 MCG/ML 2 ML VIAL (100 MCG VIAL) ONE (15:49)
[2020-01-21] MEDS ORDERED: Ondansetron INJ* 2 MG/ML VIAL IV PRN (15:56)
[2020-01-21] MEDS ORDERED: Naloxone* 0.4 MG/ML 1 ML VIAL IV PRN (15:56)
[2020-01-21] MEDS ORDERED: Metoclopramide IV* 5 MG/ML 2 ML VIAL IV PRN (15:56)
[2020-01-21] MEDS ORDERED: ceFAZolin 2 GM in NS PREMIX(*) 2 GM/100 ML BAG IVPB ONE (16:11)
[2020-01-21] MEDS ORDERED: Propofol* 10 MG/ML 20 ML BTL ONE (16:30)
[2020-01-21] MEDS ORDERED: HYDROmorphone INJ1* 1 MG/ML SYRINGE ONE ×3 (16:31→19:15)
[2020-01-21] MEDS ORDERED: Rocuronium* 10 MG/ML VIAL ONE ×2 (16:31→17:16)
[2020-01-21] MEDS ORDERED: Ondansetron INJ* 2 MG/ML VIAL ONE (18:05)
[2020-01-21] MEDS ORDERED: Dexamethasone IV* 4 MG/ML 1 ML (4 MG) ONE (18:05)
[2020-01-21] MEDS ORDERED: Sugammadex * 200 MG/2 ML VIAL IV PUSH ONE (18:41)
[2020-01-21] MEDS: HYDROmorphone INJ1* 1 MG/ML SYRINGE IV PRN ×2 (19:00→19:05)
[2020-01-21] MEDS ORDERED: Midazolam* 1 MG/ML 2 ML VIAL (2 MG) ONE (19:15)
[2020-01-21] MEDS ORDERED: oxyCODONE TAB* 5 MG TAB ONE (19:28)
[2020-01-21] MEDS ORDERED: Labetalol IV* 5 MG/ML 20 ML VIAL ONE (20:06)
[2020-01-21] MEDS ORDERED: Gabapentin CAP(*) 300 MG ONE (20:37)
[2020-01-21] MEDS: CANNABIDIOL PO SCH (21:50)
--- NOTE | 2020-01-22 00:05 | OP ---
DATE OF OPERATION: 01/19/20 - ROOM #[id number] DATE OF : 58 SURGEON: Rasheeda Bartlett MD [employer] DESIGNER: BELLO Silva ANESTHESIA: General. PRE-OP DIAGNOSIS: Dislocated total hip on the right side. POST-OP DIAGNOSIS: Dislocated total hip on the right side. OPERATIVE PROCEDURE: Attempted reduction right total hip arthroplasty dislocation. INDICATIONS: Danielle is a 59-year-old woman who started having pain with weightbearing on her right total hip arthroplasty a couple of days prior. She had the hip replacement done 2 weeks ago. She said prior to having trouble bearing weight, she was doing the bicycle in the physical therapy. She did not have a specific event that she recalls, but the pain had become bad enough that she went to the emergency room on 01/19/20 where an x-ray showed her right total hip to be dislocated. ESTIMATED BLOOD LOSS: Zero. DESCRIPTION OF PROCEDURE: The patient was brought to the operating room, was given a general anesthetic with muscle relaxer. She was completely relaxed and after attempts with traction, manipulation, was unable to reduce the hip arthroplasty, was able to bring the leg out to length, but could not reduce the head into the acetabulum as felt there was something blocking the reduction, so we ended attempts and the patient was awakened from general anesthesia and brought to the recovery room in good condition. [id number] #: [id number] MTDD
--- NOTE | 2020-01-22 00:40 | OP ---
DATE OF OPERATION: 01/21/20 - ROOM #335 DATE OF : 58 ATTENDING SURGEON: Emelia Tao MD PRODUCT DEMONSTRATOR: BELLO Wilcox. Ms. León did help throughout the procedure with preparation of the leg, wound retraction, manipulation of the hip, and wound closure. ANESTHESIOLOGIST: Dr. Celeste. ANESTHESIA: General. PRE-OP DIAGNOSIS: Right total hip arthroplasty with dislocation. POST-OP DIAGNOSIS: Right total hip arthroplasty with dislocation. OPERATIVE PROCEDURE: Open reduction of the right total hip arthroplasty dislocation, revision of the acetabular liner and femoral head. HARDWARE USED: The 38D MDM cementless liner was placed as well as an MDM X3 insert 22.2/38/38D with a 22.2+3 Zeigler LFIT V40 femoral head. COMPLICATIONS: None. ESTIMATED BLOOD LOSS: 50 cc. SPECIMEN: Multiple culture swabs were obtained although there was no evidence of purulence or infection. The polyethylene liner and ceramic femoral head were sent to Pathology. BRIEF HISTORY/INDICATION: Ms. Nye is a 59-year-old female who underwent 05/17 right total hip arthroplasty without complication. Postoperatively, she did well. She started outpatient physical therapy. The patient reported 72 hours of abnormal right hip pain and pain with weightbearing. She came into the emergency room on 01/19/20 and was found to have an anterior dislocation of her hip. She denied any traumatic injury to the hip. Her history was quite unusual. An attempt in the emergency room as well as in the operating room by Dr. Bartlett for closed reduction of the dislocation was unsuccessful. The patient was on Eliquis for a blood thinner. We did plan a 01/21/20 open reduction of the hip with possible revision of components depending on stability after reduction and evaluation of the components for any loosening or poor alignments. The patient and I discussed her operative options. She wished to have open reduction of the dislocation. She wished to preserve the acetabular cup if at all possible. We did talk about version and revision of the cup. She did not wish to have this. She wished to have MDM components placed for increased stability or constrained liner rather than explant of the acetabulum or femoral stem if possible. Informed consent was obtained from the patient. She understood the risks of surgery included, but were not limited to bleeding, infection, damage to nearby structures, continued pain, need for further surgery , intraoperative fracture, nerve palsy, hardware failure or loosening, recurrent dislocation, stroke, heart attack, blood clot, and . She wished to proceed. INTRAOPERATIVE FINDINGS: Intraoperatively, the patient's dislocation was anterior with a large amount of anterior capsule that was preventing reduction of the femoral head. Once the femoral head was reduced, there was no obvious anterior instability. The disruption of the anterior soft tissue was quite traumatic. Decision was made to change to MDM implants in order to decrease the risk of future dislocation. There was no evidence of loosening of the implants. There was no evidence of purulence or infection. There was no evidence of periprosthetic fracture. The acetabulum did have some increased anteversion although the cup alignment aligned with the patient's anatomy including the transverse acetabular ligament. DESCRIPTION OF PROCEDURE: Ms. Nye was identified in the preanesthesia unit. Her right lower extremity was marked as the correct operative side. Informed consent was signed and placed in the chart. The patient was taken to the operating room and placed under anesthesia. The patient was placed in the left lateral decubitus position on the pegboard. All bony prominences were well padded. Right lower extremity was prepped and draped in the usual sterile fashion. Preop time-out was made to correctly identify the patient's side and site. Appropriate perioperative antibiotics were given within 1 hour of incision. The patient's prior posterolateral hip incision was opened with a 10 blade. Dissection was carried down to the lateral fascia layer, which was intact. A new 10 blade was used to open up the lateral fascial layer and a Charnley retractor was placed. A large amount of seroma and hematoma was encountered. Multiple culture swabs were obtained although this had no evidence of infection or purulence. The patient's posterior capsular repair remained intact. 10 blade was used to cut this and the posterior capsular flap was tagged with #5 Ethibond. This helped with visualization of the cup. There was a large amount of capsule and soft tissue in the cup and the femoral head was not visible. Multiple instruments were used to move the soft tissue anteriorly, while a reduction maneuver was placed and the femoral head was guided in to the acetabulum. The amount of soft tissue preventing the reduction was remarkable. The anterior soft tissue had traumatic disruption. Once the femoral head was reduced, the hip was taken through a range of motion. There was no obvious anterior or posterior instability with full range of motion in the extremes of motion. The hip was carefully dislocated posteriorly. Femoral head was removed. The stem was checked for any loosening and none was noted. There was correct satisfactory position of the femoral stem. Next, the femoral stem was retracted anteriorly and the acetabulum was evaluated. Acetabular cup was intact. The inferior acetabulum aligned with the transverse acetabular ligament. The cup was noted to have a small amount of increased anteversion. Polyethylene liner was carefully removed without complication. The hip joint was copiously irrigated with sterile saline. An MDM trial liner was placed with a 38 MDM trial head. The hip was reduced and taken through a range of motion. The hip was stable in all positions. The extremes of external rotation and extension were repetitively tested and there was no anterior dislocation of this implant. All trials were carefully removed. The hip was copiously irrigated with sterile saline. The liner chosen was MDM cementless liner 38D. This was impacted into the acetabulum without difficulty. Stability of the liner was checked and rechecked and noted to be stable. Next, a MDM X3 insert 22.2/38D was fit with a Ct LFIT V40 femoral head 22.2 +3. This head and liner were impacted on to the femoral neck without difficulty. The hip was reduced. The hip was taken through a range of motion. There was no soft tissue interposed. There was no soft tissue impingement. There was no instability noted with the extremes of motion. The hip was once again copiously irrigated with sterile saline. The previously tagged capsule was reapproximated to the posterolateral femur through 2 trochanteric drill holes. Next, the lateral fascial layer was closed with #1 Vicryls. The rest of the incision was closed in a layered fashion using 0 and 2 -0 Vicryls. Skin was closed using running 3-0 nylon suture. Sterile Xeroform, 4x4's, and paper tape were used to cover the incision. The patient's anesthesia was reversed without difficulty. She was taken to the PAC in stable condition. Intended weightbearing will be weightbearing as tolerated. Intended DVT prophylaxis will be Eliquis. [id number]/[facility] #: [id number] [facility]
[2020-01-22] MEDS: oxyCODONE TAB* 5 MG TAB PO PRN ×3 (01:34→10:47)
[2020-01-22] MEDS: Lactated Ringers 1000 ML Bag* 1,000 ML IV SCH (01:46)
[2020-01-22] MEDS: oxyCODONE/Acetamin 5/325 MG* TAB PO PRN ×3 (03:22→12:27)
[2020-01-22] MEDS: Morphine INJ* 2 MG/ML 1 ML SYRINGE (TWO MG - NEW SYRINGE VERSION) IV PRN ×3 (04:44→09:46)
[2020-01-22 04:58] LABS: Hematocrit 29 % (35-47); Hemoglobin 9.9 g/dL (12.0-16.0); Mean Platelet Volume 6.6 fL (7.4-10.4); Platelet Count 445 10^3/uL (150-450)
[2020-01-22 05:17] LABS: BUN/Creatinine Ratio 17.7 (8-20); Calcium 9.2 mg/dL (8.6-10.3); EGFR African American 118.8 (>60); EGFR Non-African American 98.2 (>60); Potassium 4.1 mmol/L (3.5-5.0)
[2020-01-22] MEDS: Gabapentin CAP(*) 300 MG PO SCH ×2 (05:45→09:45)
[2020-01-22] MEDS: Docusate CAP* 100 MG PO SCH (07:44)
[2020-01-22] MEDS ORDERED: Apixaban* 2.5 MG TAB PO SCH (09:00)
--- NOTE | 2020-01-22 11:14 | PN ---
Progress Note - Progress Note Date of Service: 01/22/20 SOAP: Subjective: []Pt seen and examined at bedside. She feels well, pain is well controlled. Denied CP, SOB, dizziness, nausea. Strongly desires DC home Objective: []Gen: NAD RLE: Hip dressing changed, incision CDI without erythema or discharge. Thigh soft, DF/ PF intact. DP 2+ Calves supple and nontender without erythema, edema or palpable cords Assessment: []right total hip arthroplasty dislocation POD 1 sp open reduction with exchange of liner and head Plan: []WBAT with posterior hip precautions, gentle ROM, no hyperextension and external rotation eliquis 2.5 mg po bid x 30 days post op DC home with home care for first week then outpt pt Pain control with percocet, no msk relaxants Vital Signs Temp 99 F 01/22/20 07:34 Pulse 72 01/22/20 09:46 Resp 16 01/22/20 10:47 BP 112/50 01/22/20 09:46 Pulse Ox 96 01/22/20 07:34 Intake & Output 01/21/20 01/22/20 01/22/20 18:59 06:59 18:59 Intake Total 1600 1180 Output Total 675 1650 Balance 925 -470 Intake: IV Fluids 1600 300 LR 1500 300 NS 100ML, Cefazolin 2G 100 Oral 880 Output: Bright 675 1650 Other: Estimated Void Medium Estimated Blood Loss 150 Comment # Voids 1 Laboratory Last Values WBC 6.3 10^3/uL (3.5-10.8) 01/20/20 10:59 RBC 3.14 10^6 /uL (3.70-4.87) L 01/20/20 10:59 Hgb 9.9 g/dL (12.0-16.0) L 01/22/20 04:40 Hct 29 % (35-47) L 01/22/20 04:40 MCV 90 fL (80-97) 01/20/20 10:59 MCH 30 pg (27-31) 01/20/20 10:59 MCHC 34 g/dL (31-36) 01/20/20 10:59 RDW 14 % (10-15) 01/20/20 10:59 Plt Count 445 10^3/uL (150-450) 01/22/20 04:40 MPV 6.6 fL (7.4-10.4) L 01/22/20 04:40 Neut % (Auto) 70.8 % 01/20/20 10:59 Lymph % (Auto) 15.6 % 01/20/20 10:59 [place] % (Auto) 9.9 % 01/20/20 10:59 Eos % (Auto) 2.5 % 01/20/20 10:59 Baso % (Auto) 1.2 % 01/20/20 10:59 Absolute Neuts (auto) 4.5 10^3/ul (1.5-7.7) 01/20/20 10:59 Absolute Lymphs (auto) 1.0 10^3/ul (1.0-4.8) 01/20/20 10:59 Absolute Monos (auto) 0.6 10^3/ul (0-0.8) 01/20/20 10:59 Absolute Eos (auto) 0.2 10^3/ul (0-0.6) 01/20/20 10:59 Absolute Basos (auto) 0.1 10^3/ul (0-0.2) 01/20/20 10:59 Absolute Nucleated RBC 0.0 10^3/ul 01/20/20 10:59 Nucleated RBC % 0.0 01/20/20 10:59 INR (Anticoag Therapy) 1.16 (0.82-1.09) H 01/20/20 10:59 Sodium 139 mmol/L (135-145) 01/22/20 04:40 Potassium 4.1 mmol/L (3.5-5.0) 01/22/20 04:40 Chloride 103 mmol/L (101-111) 01/22/20 04:40 Carbon Dioxide 29 mmol/L (22-32) 01/22/20 04:40 Anion Gap 7 mmol/L (2-11) 01/22/20 04:40 BUN 11 mg/dL (6-24) 01/22/20 04:40 Creatinine 0.62 mg/dL (0.51-0.95) 01/22/20 04:40 Est GFR ( Amer) 118.8 (>60) 01/22/20 04:40 Est GFR (Non-Af Amer) 98.2 (>60) 01/22/20 04:40 BUN/Creatinine Ratio 17.7 (8-20) 01/22/20 04:40 Glucose 121 mg/dL (70-100) H 01/22/20 04:40 Calcium 9.2 mg/dL (8.6-10.3) 01/22/20 04:40 Total Bilirubin 0.50 mg/dL (0.2-1.0) 01/20/20 10:59 AST 26 U/L (13-39) 01/20/20 10:59 ALT 15 U/L (7-52) 01/20/20 10:59 Alkaline Phosphatase 49 U/L (34-104) 01/20/20 10:59 Total Protein 5.4 g/dL (6.4-8.9) L 01/20/20 10:59 Albumin 3.2 g/dL (3.2-5.2) 01/20/20 10:59 Globulin 2.2 g/dL (2-4) 01/20/20 10:59 Albumin/Globulin Ratio 1.5 (1-3) 01/20/20 10:59 Urine Color Yellow 01/19/20 22:40 Urine Appearance Clear 01/19/20 22:40 Urine pH 7.0 (5-9) 01/19/20 22:40 Ur Specific [place] 1.005 (1.010-1.030) L 01/19/20 22:40 Urine Protein Negative (Negative) 01/19/20 22:40 Urine Ketones Negative (Negative) 01/19/20 22:40 Urine Blood 1+ (Negative) A 01/19/20 22:40 Urine Nitrate Negative (Negative) 01/19/20 22:40 Urine Bilirubin Negative (Negative) 01/19/20 22:40 Urine Urobilinogen Negative (Negative) 01/19/20 22:40 Ur Leukocyte Esterase Negative (Negative) 01/19/20 22:40 Urine WBC (Auto) Trace(0-5/hpf) (Absent) 01/19/20 22:40 Urine RBC (Auto) Trace(0-2/hpf) (Absent) 01/19/20 22:40 Ur Squamous Epith Cells Present (Absent) A 01/19/20 22:40 Urine Bacteria Absent (Absent) 01/19/20 22:40 Urine Glucose Negative (Negative) 01/19/20 22:40
--- NOTE | 2020-01-22 11:31 | DS ---
Orthopedic Discharge Summary - Discharge Summary Date of Admission:01/19/20 Date of Discharge: 01/22/20 Date of Surgery: 01/21/20 Attending Orthopedic Provider: Dr Tao Pre-operative Diagnosis: right total hip arthroplasty dislocation Operative Procedure: right hip open reduction, exchange of liner and head Disposition of Patient:home Home care vs Outpatient services: homecare for the first week then outpatient Condition of Patient: stable Pain medication RX at discharge: percocet. Patient is not to have muscle relaxant DVT prophylaxis RX at discharge: eliquis 2.5 mg po BID History: BASSAM ROWE is a 59 year old F with right total hip arthroplasty dislocation Hospital Course: BASSAM was admitted to [facility] on 01/19/20. Patient underwent a right hip open reduction with exchange of liner and head without complication followed by a brief recovery in PACU and transfer to the Short Stay Surgical Unit in stable condition. physical therapy and occupational therapy also participated in this patients care. Post-op day 1: patient was alert and in no acute distress. Dressing was clean, dry and intact. Operative extremity dorsiflexion and plantarflexion intact, sensation intact to light touch distally, DP2+. Prior to discharge: dressing was changed, incision was clean, dry and intact. Patient was deemed to be medically and orthopedically stable for discharge. Physical therapy goals were met. Home Medications Medication Instructions Recorded Confirmed Type Propranolol 20 mg TAB [Inderal 20 20 mg PO BEDTIME 02/14/19 01/22/20 History mg TAB] Mahesh-E 800 mg PO QAM 11/14/19 01/19/20 History Turmeric 1 tab.chew PO BID 11/14/19 01/19/20 History Cannabidiol (Cbd) Extract 20 mg PO BID 12/31/19 01/19/20 History [Epidiolex] Gabapentin 300 mg PO ONCE 12/31/19 01/19/20 History Apixaban* [Eliquis*] 2.5 mg PO BID tab 01/05/20 01/19/20 Rx Acetaminophen TAB* [Tylenol TAB*] 650 mg PO Q6H PRN tab 01/22/20 Rx Apixaban* [Eliquis*] 2.5 mg PO BID #60 tab 01/22/20 Rx Docusate CAP* [Colace Cap*] 100 mg PO BID PRN #60 cap 01/22/20 Rx oxyCODONE/Acetamin 5/325 MG* 1 tab PO Q4H PRN #42 tab MDD 6 01/22/20 Rx [Percocet 5/325 TAB*] Discharge Instructions following Orthopedic Surgery: Activity: * Weight Bearing as tolerated * Continue physical therapy and occupational therapy exercises as shown * home physical therapy then continue therapy as an outpatient right away after home PT is complete * Keep a pillow under right knee while in bed so that hip will be in slight flexion Hip replacements: Continue posterior Hip Precautions- do not cross legs or bend greater than 90 degrees/squat ALSO anterior hip precautions - no hyperextension and external rotation as you had an anterior dislocation Wound care: * OK to shower on post-op day 3, no bathing, swimming, or submerging wound. * Use gentle soap, pat dry. Cover with gauze, RIANA wrap or tape. * visiting home nurse will perform wound checks. Call Orthopedic office for: * Increased drainage * Redness * Increased pain * Fever Go to ER with shortness of breath or chest pain. Diet: * Regular diet * Increase fluids and fiber to prevent constipation. * Continue to use stool softeners, call office if no bowel motion within 48 hours. Medications See Home Medication List in your packet for medications that you should take after discharge. DVT Prophylaxis: Eliquis Dosin.5 mg, 1 tab every 12 hours x 30 days post op Increases bleeding tendency Pain Control: Percocet 5/325 mg 1 tab for pain by mouth every 4 hours as needed. Maximum of 6 tabs per day. Hold for sedation, wean off as soon as pain allows Please note that Percocet contains Tylenol (acetaminophen). Maximum daily dose of Tylenol is 4000 mg from all sources. You may NOT use muscle relaxants. Antibiotics are required prior to any dental work. FOLLOW UP: Follow up with Dr. Stephenson] Within [14] days, call for appointment Please call our office with any questions or concerns ([phone]) [facility]
[2020-01-22 11:35] VITALS: BP 119/53
== END 2020-01-22 14:14 | disposition home health service (06) | DRG 301 ==
LOC: ED 14:45 → OR 18:16 → SSU 19:12
PROVIDERS: ADMIT Physician Assistant; ATTEND Orthopaedic Surgery Adult Reconstructive Orthopaedic Surgery
PROC: 0SRR0JA Replacement of Right Hip Joint, Femoral Surface with Synthetic Substitute, Uncemented, Open Approach (ICD-10-PCS; 2020-01-21)
PROC: 0SPR0JZ Removal of Synthetic Substitute from Right Hip Joint, Femoral Surface, Open Approach (ICD-10-PCS; 2020-01-21)
PROC: 0SP909Z Removal of Liner from Right Hip Joint, Open Approach (ICD-10-PCS; 2020-01-21)
PROC: 0SUA09Z Supplement Right Hip Joint, Acetabular Surface with Liner, Open Approach (ICD-10-PCS; 2020-01-21)
PROC: 0SWR0JZ Revision of Synthetic Substitute in Right Hip Joint, Femoral Surface, Open Approach (ICD-10-PCS; principal; 2020-01-21 17:00)
DX: T84.020A Dislocation of internal right hip prosthesis, initial encounter (principal); F41.9 Anxiety disorder, unspecified; I10 Essential (primary) hypertension; E78.00 Pure hypercholesterolemia, unspecified; C43.9 Malignant melanoma of skin, unspecified; Z79.899 Other long term (current) drug therapy; Z88.8 Allergy status to other drugs, medicaments and biological substances; Z82.49 Family history of ischemic heart disease and other diseases of the circulatory system; Z80.1 Family history of malignant neoplasm of trachea, bronchus and lung; Z82.69 Family history of other diseases of the musculoskeletal system and connective tissue
CPT/HCPCS: 36415; 72192; 76000; 80048; 80053; 81003; 81015; 85014; 85018; 85025; 85049; 85610; 87070; 87073; 87086; 87205; 88300; 93005; 99285; A9270-GY; J0330; J0690; J1100; J1170; J1650; J2250; J2270; J2405; J2704; J3010

== ENCOUNTER 2022-04-06 06:02 | Inpatient (IN) ==
[~2022-04-06 06:02] MED LIST changes: -Acetaminophen TAB* 325 MG PO ONE; +Buffered Lidocaine 1% SYRIN 1 ml INTRADERM ONE; -Buffered Lidocaine 1% SYRIN* 1 ML/SYRINGE INTRADERM ONE; -Lactated Ringers 1000 ML Bag* 1,000 ML IV SCH; +Lactated Ringers 1000 ml BAG 1,000 ML IV SCH; +Naloxone 0.4 mg VIAL 0.4 mg/ml 1 ml VIAL IV PRN; +Ondansetron 4 mg VIAL 2 MG/ML 2 ml VIAL IV PRN; -Propofol* 500 MG/50 ML BTL ONE; -Tranexamic Acid 1,000 MG in NS 0.9% 50 ML* (outpatient use) IV SCH; -celeCOXIB CAP* 200 MG PO ONE; -fentaNYL* 50 MCG/ML 2 ML VIAL (100 MCG VIAL) ONE
[2022-04-06] MEDS ORDERED: ceFAZolin 2 GM in NS PREMIX 2 GM/100 ML BAG IVPB ONE (06:10)
[2022-04-06] MEDS ORDERED: Midazolam 2 mg/2 ml VIAL 1 mg/ml 2 ml VIAL (2 mg) ONE (06:47)
[2022-04-06] MEDS ORDERED: Propofol 10 MG/ML 20 ML BTL ONE (06:47)
[2022-04-06] MEDS ORDERED: Dexamethasone IV 4 MG/ML VIAL 1 ml VIAL ONE (06:47)
[2022-04-06] MEDS ORDERED: fentaNYL 100 mcg/2 ml 50 MCG/ML VIAL ONE ×3 (06:47→10:09)
[2022-04-06] MEDS ORDERED: Ondansetron 4 mg VIAL 2 MG/ML 2 ml VIAL ONE (06:47)
[2022-04-06] MEDS ORDERED: Lidocaine 2% PF 5 ML VIAL ONE (06:47)
[2022-04-06] MEDS ORDERED: Rocuronium 50 mg VIAL 10 mg/ml 5 ml VIAL (50 mg) ONE ×2 (06:48→08:10)
[2022-04-06] MEDS ORDERED: ROPIVACAINE 5 MG/ML 30 ML BTL (0.5%) ONE (07:10)
[2022-04-06] MEDS ORDERED: Ondansetron 4 mg VIAL 2 MG/ML 2 ml VIAL IV PRN (07:30)
[2022-04-06] MEDS ORDERED: Lactulose 30 ml UDC PO PRN (07:30)
[2022-04-06] MEDS ORDERED: Ondansetron ODT 4 mg TAB 4 MG TAB PO PRN (07:30)
[2022-04-06] MEDS ORDERED: Magnesium Hydroxide LIQ 30 ML UDC PO PRN (07:30)
[2022-04-06] MEDS ORDERED: Morphine 2 MG/ML SYRINGE IV PRN (07:30)
[2022-04-06] MEDS ORDERED: HYDROmorphone 0.5 MG/0.5 ML SYRINGE ONE ×2 (07:34→08:04)
[2022-04-06] MEDS ORDERED: Acetaminophen IV 1 GM/100ML 100 ML IV ONE (08:05)
[2022-04-06] MEDS ORDERED: Glycopyrrolate IV 0.2 MG/ML 1 ML VIAL ONE (08:18)
[2022-04-06] MEDS ORDERED: EPHEDrine (Pressors) 50 MG/ML VIAL ONE (09:34)
[2022-04-06] MEDS: fentaNYL 100 mcg/2 ml 50 MCG/ML VIAL IV PRN ×4 (10:10→10:30)
[2022-04-06] MEDS: Magnesium Hydroxide LIQ 30 ML UDC PO SCH ×3 (12:02→21:10)
[2022-04-06] MEDS: Vitamin THERAPEUTIC TAB PO SCH (12:02)
[2022-04-06] MEDS: Lactated Ringers 1000 ml BAG 1,000 ML IV SCH ×2 (12:23→22:44)
[2022-04-06] MEDS: ceFAZolin VIAL 1 GM in NS 0.9% 50 ML 50 ML IVPB SCH ×2 (15:53→23:37)
[2022-04-07 06:22] LABS: Hematocrit 28 % (35-47); Hemoglobin 9.3 g/dL (12.0-16.0); Mean Platelet Volume 7.8 fL (7.4-10.4); Platelet Count 184 10^3/uL (150-450)
[2022-04-07 06:43] LABS: Calcium 8.3 mg/dL (8.6-10.3); eGFR CKD-EPI 95.5 (>60)
[2022-04-07] MEDS: ceFAZolin VIAL 1 GM in NS 0.9% 50 ML 50 ML IVPB SCH (08:09)
[2022-04-07] MEDS: Magnesium Hydroxide LIQ 30 ML UDC PO SCH (08:56)
[2022-04-07] MEDS: Vitamin THERAPEUTIC TAB PO SCH (08:57)
[2022-04-07 11:01] VITALS: BP 110/66
== END 2022-04-07 13:54 | disposition home or self-care (01) | DRG 301 ==
LOC: SSU → INTOOBSV 06:02 → AA 06:02
PROVIDERS: ADMIT Orthopaedic Surgery Adult Reconstructive Orthopaedic Surgery; ATTEND Orthopaedic Surgery Adult Reconstructive Orthopaedic Surgery